=== PATIENT | male | born 1985 | race Caucasian/White ===

== ENCOUNTER 2019-04-11 11:26 | Inpatient (IN) | payer BC, OTHER ==
[2019-04-11] MEDS ORDERED: ACETAMINOPHEN 1000 MG/100 ML VIAL (NON FORMULARY) IVPB ONE (11:34)
[2019-04-11] MEDS ORDERED: SODIUM CHLORIDE 1,000 ML IV STA (11:34)
--- NOTE | 2019-04-11 11:35 | PDOC ---
History of Present Illness - General Chief Complaint: Pain Stated Complaint: abd pain Time Seen by Provider: 04/11/19 11:29 History Source: Patient Exam Limitations: No Limitations - History of Present Illness Initial Comments: 04/11/19 13:14 33 year old male with past medical history of diverticulitis presents with 1 week of LLQ pain. No fevers, chills, nausea, vomiting. Denies genitalia pain. No flank pain. States feels like his prior diverticulitis. Pain is constant without radiation. Past History - Past Medical History Allergies/Adverse Reactions: Allergies Allergy/AdvReac Type Severity Reaction Status Date / Time No Known Allergies Allergy Verified 04/11/19 11:27 Home Medications: Ambulatory Orders No Home Medications 0 dose .ROUTE UTDICT 09/13/12 COPD: No Other medical history: diverticulitis - Suicide/Smoking/Psychosocial Hx Smoking Status: No Smoking History: Never smoked Have you smoked in the past 12 months: No Number of Cigarettes Smoked Daily: 2 Information on smoking cessation initiated: No Hx Alcohol Use: No Drug/Substance Use Hx: No Review of Systems - Review of Systems Able to Perform ROS?: Yes Comments:: 04/11/19 13:29 GENERAL/CONSTITUTIONAL: [No fever or chills. No weakness. No weight change.] HEAD, EYES, EARS, NOSE AND THROAT: [No change in vision. No ear pain or discharge. No sore throat.] CARDIOVASCULAR: [No chest pain or shortness of breath.] RESPIRATORY: [No cough, wheezing, or hemoptysis.] GASTROINTESTINAL: [No nausea, vomiting, diarrhea or constipation. No rectal bleeding.] +abdominal pain GENITOURINARY: [No dysuria, frequency, or change in urination.] MUSCULOSKELETAL: [No joint or muscle swelling or pain. No neck or back pain.] SKIN AND BREASTS: [No rash or easy bruising.] NEUROLOGIC: [No headache, vertigo, loss of consciousness, or loss of sensation.] PSYCHIATRIC: [No depression or anxiety.] ENDOCRINE: [No increased thirst. No abnormal weight change.] HEMATOLOGIC/LYMPHATIC: [No anemia, easy bleeding, or history of blood clots.] ALLERGIC/IMMUNOLOGIC: [No hives or skin allergy. No latex allergy.] *Physical Exam - Vital Signs Last Vital Signs Temp Pulse Resp BP Pulse Ox 98.5 F 89 20 140/78 99 07/21/19 11:27 04/11/19 11:27 04/11/19 11:27 04/11/19 11:27 04/11/19 11:27 - Physical Exam Comments: 04/11/19 13:29 GENERAL: Awake, alert, and fully oriented, in no acute distress HEAD: No signs of trauma EYES: EOMI, sclera anicteric, conjunctiva clear ENT: Auricles normal inspection, hearing grossly normal, nares patent NECK: Normal ROM, supple ABDOMEN: Soft, TTP LLQ. No guarding, no rebound. No masses : Circumsized penis with no drainage or lesion. No rash. No testicular tenderness. EXTREMITIES: Normal range of motion, no edema. No clubbing or cyanosis. No cords, erythema, or tenderness NEUROLOGICAL: Cranial nerves II through XII grossly intact. Normal speech, normal gait SKIN: Warm, Dry, normal turgor, no rashes or lesions noted. ED Treatment Course - LABORATORY CBC & Chemistry Diagram: 04/11/19 12:00 04/11/19 12:00 - RADIOLOGY Radiology Studies Ordered: Category Date Time Status ABDOMEN & PELVIS CT WITH CONTR [CT] Stat CT Scan 04/11/19 11:34 Ordered Medical Decision Making - Medical Decision Making 04/11/19 13:32 Vital Signs Temp Pulse Resp BP Pulse Ox 98.5 F 89 20 140/78 99 04/11/19 11:27 04/11/19 11:27 04/11/19 11:27 04/11/19 11:27 04/11/19 11:27 LLQ pain. R/o diverticulitis. Labs, CT scan of abdomen and pelvis, UA, reassess. 04/11/19 14:34 CBC, BMP 04/11/19 12:00 04/11/19 12:00 CMP Sodium 136 mmol/L (136-145) 04/11/19 12:00 Potassium 3.8 mmol/L (3.5-5.1) 04/11/19 12:00 Chloride 101 mmol/L (98-107) 04/11/19 12:00 Carbon Dioxide 25 mmol/L (21-32) 04/11/19 12:00 Anion Gap 10 MMOL/L (8-16) 04/11/19 12:00 BUN 9.0 mg/dl (7-18) 04/11/19 12:00 Creatinine 0.8 mg/dl (0.55-1.3) 04/11/19 12:00 Est GFR (CKD-EPI)AfAm 137.96 04/11/19 12:00 Est GFR (CKD-EPI)NonAf 119.03 04/11/19 12:00 Random Glucose 187 mg/dl (74-106) H 04/11/19 12:00 Calcium 9.2 mg/dl (8.5-10) 04/11/19 12:00 Total Bilirubin 0.6 mg/dl (0.2-1) 04/11/19 12:00 AST 14 U/L (15-37) L 04/11/19 12:00 ALT 21 U/L (13-61) 04/11/19 12:00 Alkaline Phosphatase 50 U/L (45-117) 04/11/19 12:00 Total Protein 7.2 g/dl (6.4-8.2) 04/11/19 12:00 Albumin 3.9 g/dl (3.4-5.0) 04/11/19 12:[address] shows acute diverticulitis with microperforation and abscess. Case discussed with Dr. Driver. She will consult on case. Pt will likely need IR drainage. Given the microperforation and likely IR drainage, will transfer pt to [facility] Case discussed with charlotte hungerford hospitalist. Pt admitted to Med/Surg Admission. Case discussed in detail with admitting physician including history, physical exam and ancillary studies. Admitting physician has assumed care for the patient, will follow all pending diagnostics and will complete the evaluation and treatment. *DC/Admit/Observation/Transfer Diagnosis at time of Disposition: Diverticulitis - Discharge Dispostion Condition at time of disposition: Stable Decision to Admit order: Yes - Referrals - Patient Instructions - Post Discharge Activity
[2019-04-11] MEDS ORDERED: ACETAMINOPHEN INJECTION 100 ML IVPB ONE (11:41)
[2019-04-11 12:21] LABS: BASO % 2.7 % (0-2.0); EOS % 0.7 % (0-4.5); HEMATOCRIT 41.1 % (35.4-49); HEMOGLOBIN 13.6 GM/dl (11.7-16.9); LYMPH % 9.1 % (8-40); MCH 28.4 pg (25.7-33.7); MCHC 33.2 g/dl (32.0-35.9); MEAN CELL VOLUME 85.6 fl (80-96); MEAN PLT VOLUME 9.3 fl (7.5-11.1); MONO % 7.2 % (3.8-10.2); NEUT % 80.3 % (42.8-82.8); PLATELET COUNT 389 K/MM3 (134-434); RDW 11.9 % (11.9-15.9); WHITE BLOOD COUNT 18.1 K/mm3 (4.0-10.8)
[2019-04-11 12:27] LABS: ALBUMIN 3.9 g/dl (3.4-5.0); BILIRUBIN,TOTAL 0.6 mg/dl (0.2-1); CALCIUM 9.2 mg/dl (8.5-10); CREATININE 0.8 mg/dl (0.55-1.3); POTASSIUM 3.8 mmol/L (3.5-5.1); TOT PROT 7.2 g/dl (6.4-8.2)
[2019-04-11] MEDS ORDERED: morphine CARPU-JECT 2 MG/1 ML DISP.SYRIN IVPUSH ONE (13:10)
[2019-04-11] MEDS ORDERED: morphine SULFATE 4 MG/ML VIAL ONE ×2 (13:12→13:59)
[2019-04-11] MEDS ORDERED: PIPERACILLIN/TAZOB 3.375 GM 3.375 GM in DEXTROSE 5%-WATER - 50 ML IVPB ONE (13:40)
[2019-04-11] MEDS ORDERED: morphine CARPU-JECT 4 MG/1 ML DISP.SYRIN IVPUSH ONE ×2 (13:45→14:31)
[2019-04-11] MEDS ORDERED: PIPERACILLIN/TAZOBACTAM 3.375 GM VIAL IVPB ONE (13:59)
[2019-04-11] MEDS ORDERED: ONDANSETRON 4 MG/2 ML VIAL IVPUSH PRN (14:17)
--- NOTE | 2019-04-11 14:23 | HP ---
Admitting History and Physical - Admission Chief Complaint: Left LQ pain History of Present Illness: 33 yrs old man H/O Diverticulitis present with Left LQ pain, poor PO intake for pat 1 wk as per patient symptoms started Friday night with left Lq pain that was intermittent, localised and associated with some nausea but no or chills, poor appetite and skip few work days, symptoms persisted more then usual and pain was very sever last night and today also c/o low grade fever , in the ED patient was afebrile with elevated TWBC , CT abd shows Acute Sigmoid Diverticulitis with perforation is being admitted for acute Diverticulitis with abscess at the time of examination comfortable, surgery is consulted recommended abx, no surgical nonintervention, possible CT guided aspiration. History Source: Patient - Past Medical History Gastrointestinal: Yes: Diverticulitis - Smoking History Smoking history: Never smoked Have you smoked in the past 12 months: No Aproximately how many cigarettes per day: 2 - Alcohol/Substance Use Hx Alcohol Use: No History of Substance Use: denies: Cocaine, Heroin - Social History Usual Living Arrangement: Yes: With Spouse Home Medications - Allergies Allergies/Adverse Reactions: Allergies Allergy/AdvReac Type Severity Reaction Status Date / Time No Known Allergies Allergy Verified 04/11/19 11:27 - Home Medications Home Medications: Ambulatory Orders No Home Medications 0 dose .ROUTE UTDICT 09/13/12 Family Disease History - Family Disease History Family History: Unremarkable Family Disease History: Diabetes: Father Review of Systems - Review of Systems Constitutional: denies: Chills, Diaphoresis Eyes: denies: Blind Spots, Blurred Vision HENT: denies: Difficult Swallowing, Hearing Loss, Mouth Swelling Neck: denies: Decreased ROM, Lumps, Pain on Movement Cardiovascular: denies: Chest Pain, Edema, Palpitations, Shortness of Breath Respiratory: denies: Cough, Exercise Intolerance, Hemoptysis, Orthopnea Gastrointestinal: reports: Abdominal Pain, Constipation, Indigestion. denies: Bloating, Melena, Nausea Genitourinary: denies: Burning, Discharge, Dysuria, Flank Pain, Frequency Musculoskeletal: denies: Back Pain, Crepitus, Decreased ROM, Extremity Pain Integumentary: denies: Blister, Bruising, Change in Color Neurological: denies: Change in LOC, Change in Speech, Confusion Endocrine: denies: Excessive Sweating, Flushing, Increased Hunger Hematology/Lymphatic: denies: Easily Bruised, Excessive Bleeding, Swollen Glands Psychiatric: denies: Altered Sleep Pattern, Anxiety, Depression Physical Examination Vital Signs: Vital Signs Temperature 98.5 F 04/11/19 11:27 Pulse Rate 89 04/11/19 11:27 Respiratory Rate 20 04/11/19 11:27 Blood Pressure 140/78 04/11/19 11:27 O2 Sat by Pulse Oximetry (%) 99 04/11/19 11:27 Constitutional: Yes: Well Nourished, No Distress HENT: Yes: Atraumatic, Normocephalic Neck: Yes: Supple, Trachea Midline Cardiovascular: Yes: Regular Rate and Rhythm, S1, S2. No: JVD Respiratory: Yes: Regular Gastrointestinal: Yes: Normal Bowel Sounds, Tenderness, Rebound (Left LQ) Extremities: No: Calf Tenderness Edema: No Peripheral Pulses: Left Doralis Pedis: 1+, Right Dorsalis Pedis: 1+ Neurological: Yes: Alert, Oriented ...Motor Strength: WNL, LUE, LLE, RUE, RLE Labs: CBC, BMP CBC,CMP WBC 18.1 K/mm3 (4.0-10.8) H 04/11/19 12:00 RBC 4.80 M/mm3 (4.00-5.60) 04/11/19 12:00 Hgb 13.6 GM/dl (11.7-16.9) 04/11/19 12:00 Hct 41.1 % (35.4-49) 04/11/19 12:00 MCV 85.6 fl (80-96) 04/11/19 12:00 MCH 28.4 pg (25.7-33.7) 04/11/19 12:00 MCHC 33.2 g/dl (32.0-35.9) 04/11/19 12:00 RDW 11.9 % (11.9-15.9) 04/11/19 12:00 Plt Count 389 K/MM3 (134-434) 04/11/19 12:00 MPV 9.3 fl (7.5-11.1) 04/11/19 12:00 Absolute Neuts (auto) 14.6 K/mm3 04/11/19 12:00 Neutrophils % 80.3 % (42.8-82.8) 04/11/19 12:00 Lymphocytes % 9.1 % (8-40) 04/11/19 12:00 Monocytes % 7.2 % (3.8-10.2) 04/11/19 12:00 Eosinophils % 0.7 % (0-4.5) 04/11/19 12:00 Basophils % 2.7 % (0-2.0) H 04/11/19 12:00 Sodium 136 mmol/L (136-145) 04/11/19 12:00 Potassium 3.8 mmol/L (3.5-5.1) 04/11/19 12:00 Chloride 101 mmol/L (98-107) 04/11/19 12:00 Carbon Dioxide 25 mmol/L (21-32) 04/11/19 12:00 Anion Gap 10 MMOL/L (8-16) 04/11/19 12:00 BUN 9.0 mg/dl (7-18) 04/11/19 12:00 Creatinine 0.8 mg/dl (0.55-1.3) 04/11/19 12:00 Est GFR (CKD-EPI)AfAm 137.96 04/11/19 12:00 Est GFR (CKD-EPI)NonAf 119.03 04/11/19 12:00 Random Glucose 187 mg/dl (74-106) H 04/11/19 12:00 Calcium 9.2 mg/dl (8.5-10) 04/11/19 12:00 Total Bilirubin 0.6 mg/dl (0.2-1) 04/11/19 12:00 AST 14 U/L (15-37) L 04/11/19 12:00 ALT 21 U/L (13-61) 04/11/19 12:00 Alkaline Phosphatase 50 U/L (45-117) 04/11/19 12:00 Total Protein 7.2 g/dl (6.4-8.2) 04/11/19 12:00 Albumin 3.9 g/dl (3.4-5.0) 04/11/19 12:00 Imaging - Results Cat Scan: Report Reviewed ( acute Diverticullitis in sigmoid colon with 4.7x4 cm absces) Problem List - Problems (1) Diverticulitis of large intestine with abscess Assessment/Plan: Elevated TWBC with CT finding of acute sigmoid diverticulitis with abscess, NPO , Pain control, IV Hydration, surgery is contacted from ED recommended possible IR Guided aspiration[facility] IV Zosyn frequent abd exam, ID consult and evaluation by Code(s): K57.20 - DVTRCLI OF LG INT W PERFORATION AND ABSCESS W/O BLEEDING (2) Obesity (BMI 30-39.9) Assessment/Plan: Nutrition consult as out patient Code(s): E66.9 - OBESITY, UNSPECIFIED (3) Hyperglycemia Assessment/Plan: Accucheck q 6 with correction dose insulin, F/U HBa!C Code(s): R73.9 - HYPERGLYCEMIA, UNSPECIFIED
[2019-04-11] MEDS ORDERED: SODIUM CHLORIDE 1,000 ML IV SCH (14:30)
[2019-04-11] MEDS ORDERED: HYDROmorphone HCL CARPU-JECT 1 MG/1 ML DISP.SYRIN IVPB ONE (14:41)
[2019-04-11] MEDS: HYDROmorphone HCL CARPU-JECT 1 MG/1 ML DISP.SYRIN IVPB PRN ×2 (14:51→20:51)
[2019-04-11 15:03] LABS: INR 1.3 (0.82-1.09); PROTHROMBIN TIME (PATIENT) 15.4 SEC (10.2-13.0)
[2019-04-11 17:59] VITALS: BMI 34.9
[2019-04-11] MEDS: INSULIN SLIDING SCALE (NOVOLOG) 1 VIAL SQ SCH (18:12)
--- NOTE | 2019-04-11 18:56 | CON.ID ---
Consult - History of Present Illness History of Present Illness: 33 y.o. male with PMH of Diverticulitis diagnosed in 2017 presents with c/o severe LLQ abdominal pain, subjective fever/chills. He states pain initially began 1 wk ago. He took the following day off from work but pain persisted the rest of the week. He denies n/v/d, dysuria, SOB, cough, or chills. He states he has had about 8 episodes of similar abd pain over the past 2 yrs which he managed himself with tylenol and the pain would subside. In the ER he was noted to have temp of 99.2F with wbc of 18K. CT Abd/Pelvis severe sigmoid inflammation consistent with diverticulitis, microperforation and 4.7x 4 cm abscess. He is currently alert, pain controlled, without distress. - History Source History Provided By: Patient - Past Medical History Gastrointestinal: Yes: Diverticulitis - Alcohol/Substance Use Hx Alcohol Use: Yes (social) History of Substance Use: denies: Cocaine, Heroin - Smoking History Smoking history: Current some day smoker Have you smoked in the past 12 months: Yes Aproximately how many cigarettes per day: 1 Home Medications - Allergies Allergies/Adverse Reactions: Allergies Allergy/AdvReac Type Severity Reaction Status Date / Time No Known Allergies Allergy Verified 04/11/19 11:27 - Home Medications Home Medications: Ambulatory Orders No Home Medications 0 dose .ROUTE UTDICT 09/13/12 Family Disease History - Family Disease History Family Disease History: Diabetes: Father Review of Systems - Review of Systems Constitutional: reports: Fever Eyes: reports: No Symptoms HENT: reports: No Symptoms Neck: reports: No Symptoms Cardiovascular: reports: No Symptoms Respiratory: reports: No Symptoms Gastrointestinal: reports: Abdominal Pain Genitourinary: reports: No Symptoms Musculoskeletal: reports: No Symptoms Integumentary: reports: No Symptoms Neurological: reports: No Symptoms Endocrine: reports: No Symptoms Hematology/Lymphatic: reports: No Symptoms Psychiatric: reports: No Symptoms Physical Exam Vital Signs: Vital Signs Temperature 98.3 F 04/11/19 17:47 Pulse Rate 84 04/11/19 17:47 Respiratory Rate 16 04/11/19 17:47 Blood Pressure 138/88 04/11/19 17:47 O2 Sat by Pulse Oximetry (%) 98 04/11/19 17:47 Constitutional: Yes: No Distress, Calm Eyes: Yes: Conjunctiva Clear, EOM Intact HENT: Yes: Atraumatic Neck: Yes: Supple Cardiovascular: Yes: Regular Rate and Rhythm Respiratory: Yes: CTA Bilaterally Gastrointestinal: Yes: Normal Bowel Sounds, Soft, Tenderness (minimal LLQ with deep palpation) Renal/: Yes: WNL Musculoskeletal: Yes: WNL Extremities: Yes: WNL Edema: No Labs: CBC, BMP 04/11/19 12:00 04/11/19 12:00 Imaging - Results Cat Scan: Report Reviewed Problem List - Problems (1) Diverticulitis of large intestine with abscess Code(s): K57.20 - DVTRCLI OF LG INT W PERFORATION AND ABSCESS W/O BLEEDING (2) Hyperglycemia Code(s): R73.9 - HYPERGLYCEMIA, UNSPECIFIED (3) Obesity (BMI 30-39.9) Code(s): E66.9 - OBESITY, UNSPECIFIED Assessment/Plan 33 y.o. male with PMH of diverticulitis presenting with c/o severe LLQ abd pain x 1 wk, low grade fever/chills noted to have leukocytosis with CT Abd revealing sigmoid inflammation/microperforation/intraabdominal collection Sigmoid diverticulitis with perforation and abscess -- continue Zosyn IV empirically -- blood cultures -- monitor wbc trend, vitals -- IR evaluation for drainage -- Surgery following pt currently appears stable, without distress Will follow Thank you
[2019-04-11] MEDS ORDERED: DEXTROSE 5%-WATER 100 ML IVPB ONE (19:15)
[2019-04-11] MEDS ORDERED: PIPERACILLIN/TAZOBACTAM 4.5 GM VIAL IVPB ONE (19:15)
[2019-04-11] MEDS: PIPERACILLIN/TAZOB 4.5 GM 4.5 GM in DEXTROSE 5%-WATER 100 ML IVPB SCH (21:17)
[2019-04-11] MEDS: D5-1/2NS+20 MEQ KCL - 20 MEQ/1,000 ML INFUS.BAG IV SCH (22:31)
[2019-04-11] MEDS: ACETAMINOPHEN 1000 MG/100 ML VIAL (NON FORMULARY) IVPB PRN (22:37)
--- NOTE | 2019-04-11 23:15 | CONSULT ---
Consult Consult Specialty:: General Surgery Referred by:: Damari Hall Reason for Consultation:: sigmoid diverticulitis with microperf/abscess - History of Present Illness Chief Complaint: suprapubic/lower abdominal pain, anorexia History of Present Illness: 33yo obese M presented to ER at [facility] with suprapubic/lower abdominal pain, "squeezing/gripping on both sides," and loss of appetite for a week. He has no sig PMH/PSH except intermittent heartburn and a previous episode of diverticulitis, diagnosed in 2016, when he had similar pain in lower abdomen radiating downward to an episode from 2008 (diagnosed initially as epidydimitis at [facility]), with recurrent "flares" since then managed at home with pain medication and no medical attention until it got really bad in 2016. At that time, he sought care from a GI specialist, who did flexible sigmoidoscopy (no CT /imaging), and found diverticuli, told him he thought it was diverticulitis, and gave him antibiotics and loperamide, and he did get better. Last Friday, the pain started, and he called out of work Friday, but tried to go back and Fri. , the pain got much worse, and he stayed off work, taking Tylenol but not really getting much relief. He has been constipated this week as well, and had no appetite for most of it. Denies F/C, N/V, dysuria. The pain does radiated downward, like pressure, into his pelvis and towards his testes, similar to previous experiences, but is not really worse to one side or the other. He came to the ER at [facility] today finally because the pain was so bad. He does not have a PMD, but takes no meds regularly at home. In the ER, he was afebrile (temps to 99.3 today only), with wbc [address] showing sigmoid diverticulitis with an abscess that may be partly intramural, microperforation with local air locules only, and fluids and antibiotics were started. Surgery was asked to assess. He is planned for transfer to [facility] for possible IR drainage, and because there is a possibility that he could still need urgent surgical intervention, if he does not improve with conservative treatment. He is seen and examined in bed, resting comfortably and awake. He reports his pain is improved with medication; he feels better than earlier, and is voiding ok but no BM yet. CT was done with IV but no oral contrast. He describes the pain as low and central, with a gripping sensation to both sides of the middle, like squeezing, with some radiation and pressure downward at times. He thinks he has had multiple "flares" of this problem at home over the years, but until 2017, did not put a name to it, and figured they all must be the same thing. He had not sought medical attention for them in the past, in part due to lack of insurance. - History Source History Provided By: Patient Limitations to Obtaining History: No Limitations - Past Medical History Gastrointestinal: Yes: Diverticulitis (was treated for in 2017, had sigmoidoscopy at the time; ?may have had in 2008 w/similar pain, but diagnosis then was epidydimitis), Diverticulosis, GERD, Other (obesity) - Past Surgical History Past Surgical History: Yes: None Additional Surgical History: flexible sigmoidoscopy 2016 - Alcohol/Substance Use Hx Alcohol Use: Yes (social/weekends, some binging (6-8 beers)) History of Substance Use: reports: Marijuana (occasionally (couple times a month )) - Smoking History Smoking history: Current some day smoker Have you smoked in the past 12 months: Yes Aproximately how many cigarettes per day: 1 (smokes on wkends/when he drinks) - Social History Usual Living Arrangement: With Significant Other (fiancee) ADL: Independent 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 denies: Chills, Fever, Unintentional Wgt. Loss Eyes: denies: Blurred Vision, Recent Change in Vision HENT: denies: Difficult Swallowing, Throat Pain Neck: denies: Swollen Glands, Tenderness Cardiovascular: denies: Chest Pain, Palpitations Respiratory: reports: Snoring. denies: Cough, SOB Gastrointestinal: reports: Abdominal Pain (with hpi), Constipation (this last week), Indigestion (sometimes). denies: Diarrhea, Nausea, Vomiting Genitourinary: denies: Burning, Dysuria Musculoskeletal: denies: Back Pain, Joint Pain, Muscle Pain Integumentary: denies: Change in Color, Rash Neurological: denies: Dizziness, Headache, Unsteady Gait Psychiatric: denies: Anxiety, Depression Physical Exam Vital Signs: Vital Signs Temperature 99.3 F 04/11/19 22:29 Pulse Rate 85 04/11/19 22:29 Respiratory Rate 18 04/11/19 22:29 Blood Pressure 120/69 04/11/19 22:29 O2 Sat by Pulse Oximetry (%) 94 L 04/11/19 22:29 Constitutional: Yes: No Distress, Calm, Obese Eyes: Yes: Conjunctiva Clear, EOM Intact HENT: Yes: Atraumatic, Normocephalic Neck: Yes: Supple, Trachea Midline Cardiovascular: Yes: Regular Rate and Rhythm Respiratory: Yes: Regular, CTA Bilaterally Gastrointestinal: Yes: Normal Bowel Sounds, Soft, Abdomen, Obese, Tenderness ( LLQ > suprapubic > LUQ referred to LLQ and lower abdomen). No: Tenderness, Rebound (no rebound or guarding) ...Rectal Exam: Yes: Deferred Renal/: No: CVA Tenderness - Left, CVA Tenderness - Right Musculoskeletal: No: Joint Stiffness, Joint Swelling Extremities: No: Cool, Cyanosis Edema: No Peripheral Pulses WNL: Yes Integumentary: No: Jaundice, Rash Neurological: Yes: Alert, Oriented Psychiatric: Yes: Alert, Oriented Labs: CBC, BMP 04/11/19 12:00 04/11/19 12:00 CMP Sodium 136 mmol/L (136-145) 04/11/19 12:00 Potassium 3.8 mmol/L (3.5-5.1) 04/11/19 12:00 Chloride 101 mmol/L (98-107) 04/11/19 12:00 Carbon Dioxide 25 mmol/L (21-32) 04/11/19 12:00 Anion Gap 10 MMOL/L (8-16) 04/11/19 12:00 BUN 9.0 mg/dl (7-18) 04/11/19 12:00 Creatinine 0.8 mg/dl (0.55-1.3) 04/11/19 12:00 Est GFR (CKD-EPI)AfAm 137.96 04/11/19 12:00 Est GFR (CKD-EPI)NonAf 119.03 04/11/19 12:00 POC Glucometer 94 UNITS (80-120) 04/11/19 17:07 Random Glucose 187 mg/dl (74-106) H 04/11/19 12:00 Lactic Acid 1.0 mmol/L (0.4-2.0) 04/11/19 14:25 Calcium 9.2 mg/dl (8.5-10) 04/11/19 12:00 Total Bilirubin 0.6 mg/dl (0.2-1) 04/11/19 12:00 AST 14 U/L (15-37) L 04/11/19 12:00 ALT 21 U/L (13-61) 04/11/19 12:00 Alkaline Phosphatase 50 U/L (45-117) 04/11/19 12:00 Total Protein 7.2 g/dl (6.4-8.2) 04/11/19 12:00 Albumin 3.9 g/dl (3.4-5.0) 04/11/19 12:00 INR, PTT INR 1.30 (0.82-1.09) H 04/11/19 14:25 Urine Test Results Urine Color Yellow 04/11/19 17:30 Urine Appearance Clear 04/11/19 17:30 Urine pH 6.5 (4.5-8) 04/11/19 17:30 Urine Protein Negative (NEGATIVE) 04/11/19 17:30 Urine Glucose (UA) Negative (NEGATIVE) 04/11/19 17:30 Urine Ketones 1+ (NEGATIVE) H 04/11/19 17:30 Urine Blood Negative (NEGATIVE) 04/11/19 17:30 Urine Nitrite Negative (NEGATIVE) 04/11/19 17:30 Urine Bilirubin Negative (NEGATIVE) 04/11/19 17:30 Ur Leukocyte Esterase Negative (NEGATIVE) 04/11/19 17:30 Imaging - Results Cat Scan: Report Reviewed, Image Reviewed (images reviewed - sigmoid diverticulitis with microperforation/local few spots of air, abscess adjacent and possibly intramural, ~4cm; no distant free air) Problem List - Problems (1) Diverticulitis of large intestine with abscess Assessment/Plan: possible recurrent episode, but no imaging diagnosis of 2017 episode, nor reliable diagnosis from earlier, other than his pain pattern admitted to medicine continue NPO/IVF for now changed to maintenance fluids IV antibiotics per ID - Zosyn pain meds prn, nonnarcotics first line GI/DVT prophylaxis encouraged OOB/ambulation possible percutaneous drainage by IR tomorrow at [facility] with transfer to there to stay if abscess is not accessible to IR, will monitor clinical course over next 1-2 days - would keep at [facility] agree with possible IR drain and conservative management for now discussed with patient to let nurse/MD know if any acute change in his pain, abdominal distention, or symptoms if gross perforation or deterioration in clinical status requires emergent surgery, there is a good chance he would require colostomy he is aware and understands and agrees with plan will follow with you consider GI consultation will need GI followup for full colonoscopy 6-8 weeks after recovery from this episode also needs referral to or to establish care with a PMD after discharge - he knows this Thank you for the opportunity to participate in the care of this patient. Code(s): K57.20 - DVTRCLI OF LG INT W PERFORATION AND ABSCESS W/O BLEEDING Qualifiers: Diverticulitis bleeding: without bleeding Qualified Code(s): K57.20 - Diverticulitis of large intestine with perforation and abscess without bleeding (2) Suprapubic pain Code(s): R10.2 - PELVIC AND PERINEAL PAIN (3) Left lower quadrant abdominal tenderness without rebound tenderness Code(s): R10.814 - LEFT LOWER QUADRANT ABDOMINAL TENDERNESS (4) Class 2 obesity due to excess calories without serious comorbidity with body mass index (BMI) of 35.0 to 35.9 in adult Code(s): E66.09 - OTHER OBESITY DUE TO EXCESS CALORIES; Z68.35 - BODY MASS INDEX (BMI) 35.0-35.9, ADULT
[2019-04-12] MEDS ORDERED: PIPERACILLIN/TAZOBACTAM 4.5 GM VIAL IVPB ONE ×2 (02:20→08:33)
[2019-04-12] MEDS ORDERED: DEXTROSE 5%-WATER 100 ML IVPB ONE ×2 (02:20→08:33)
[2019-04-12] MEDS: PIPERACILLIN/TAZOB 4.5 GM 4.5 GM in DEXTROSE 5%-WATER 100 ML IVPB SCH ×3 (02:58→17:38)
[2019-04-12] MEDS: HYDROmorphone HCL CARPU-JECT 1 MG/1 ML DISP.SYRIN IVPB PRN (04:20)
[2019-04-12] MEDS: INSULIN SLIDING SCALE (NOVOLOG) 1 VIAL SQ SCH ×3 (07:03→18:26)
[2019-04-12 08:07] LABS: BASO % 0.3 % (0-2.0); EOS % 1.7 % (0-4.5); HEMATOCRIT 35.5 % (35.4-49); HEMOGLOBIN 11.9 GM/dl (11.7-16.9); MCH 28.4 pg (25.7-33.7); MCHC 33.6 g/dl (32.0-35.9); MEAN CELL VOLUME 84.6 fl (80-96); MEAN PLT VOLUME 9.4 fl (7.5-11.1); MONO % 6.7 % (3.8-10.2); NEUT % 79.3 % (42.8-82.8); PLATELET COUNT 330 K/MM3 (134-434); RDW 11.8 % (11.9-15.9); WHITE BLOOD COUNT 12.6 K/mm3 (4.0-10.8)
[2019-04-12 08:16] LABS: INR 1.43 (0.82-1.09); PROTHROMBIN TIME (PATIENT) 15.9 SEC (10.2-13.0)
[2019-04-12 08:57] LABS: ALBUMIN 3.1 g/dl (3.4-5.0); BILIRUBIN,TOTAL 0.5 mg/dl (0.2-1); CALCIUM 8.7 mg/dl (8.5-10); CREATININE 0.7 mg/dl (0.55-1.3); MAGNESIUM 2.1 mg/dL (1.8-2.4); POTASSIUM 4.6 mmol/L (3.5-5.1); TOT PROT 6.4 g/dl (6.4-8.2)
[2019-04-12] MEDS: PANTOPRAZOLE SODIUM 40 MG VIAL IVPUSH SCH (09:02)
[2019-04-12] MEDS: ACETAMINOPHEN 1000 MG/100 ML VIAL (NON FORMULARY) IVPB PRN (09:14)
--- NOTE | 2019-04-12 09:51 | PN ---
Physical Exam: SUBJECTIVE: Patient seen and examined at bedside. States feeling much better. Had a large, soft BM today, +flatus OBJECTIVE: Vital Signs Period Temp Pulse Resp BP Sys/Barlow Pulse Ox Last 24 Hr 98.3 F-99.3 F 74-89 16-20 115-140/61-89 94-99 GENERAL: The patient is awake, alert, and fully oriented, in no acute distress. LUNGS: Breath sounds equal, clear to auscultation bilaterally, no wheezes, no crackles, no accessory muscle use. HEART: Regular rate and rhythm, S1, S2 ABDOMEN: Soft, LLQ and suprapubic tenderness, hypoactive bowel sounds EXTREMITIES: 2+ pulses, warm, well-perfused, no edema. NEUROLOGICAL: Cranial nerves II through XII grossly intact. Normal speech. Laboratory Results - last 24 hr 04/11/19 04/11/19 04/11/19 12:00 12:00 14:25 WBC 18.1 H RBC 4.80 Hgb 13.6 Hct 41.1 MCV 85.6 MCH 28.4 MCHC 33.2 RDW 11.9 Plt Count 389 MPV 9.3 Absolute Neuts (auto) 14.6 Neutrophils % 80.3 Lymphocytes % 9.1 Monocytes % 7.2 Eosinophils % 0.7 Basophils % 2.7 H PT with INR INR PTT (Actin FS) Sodium 136 Potassium 3.8 Chloride 101 Carbon Dioxide 25 Anion Gap 10 BUN 9.0 Creatinine 0.8 Est GFR (CKD-EPI)AfAm 137.96 Est GFR (CKD-EPI)NonAf 119.03 POC Glucometer Random Glucose 187 H Lactic Acid 1.0 Calcium 9.2 Phosphorus Magnesium Total Bilirubin 0.6 AST 14 L ALT 21 Alkaline Phosphatase 50 Total Protein 7.2 Albumin 3.9 Urine Color Urine Appearance Urine pH Urine Protein Urine Glucose (UA) Urine Ketones Urine Blood Urine Nitrite Urine Bilirubin Urine Urobilinogen Ur Leukocyte Esterase Blood Type Antibody Screen 04/11/19 04/11/19 04/11/19 14:25 14:25 14:30 WBC RBC Hgb Hct MCV MCH MCHC RDW Plt Count MPV Absolute Neuts (auto) Neutrophils % Lymphocytes % Monocytes % Eosinophils % Basophils % PT with INR 15.4 H INR 1.30 H PTT (Actin FS) 29.8 Sodium Potassium Chloride Carbon Dioxide Anion Gap BUN Creatinine Est GFR (CKD-EPI)AfAm Est GFR (CKD-EPI)NonAf POC Glucometer Random Glucose Lactic Acid Calcium Phosphorus Magnesium Total Bilirubin AST ALT Alkaline Phosphatase Total Protein Albumin Urine Color Urine Appearance Urine pH Urine Protein Urine Glucose (UA) Urine Ketones Urine Blood Urine Nitrite Urine Bilirubin Urine Urobilinogen Ur Leukocyte Esterase Blood Type O POSITIVE Antibody Screen Negative 04/11/19 04/11/19 04/11/19 17:07 17:30 17:30 WBC RBC Hgb Hct MCV MCH MCHC RDW Plt Count MPV Absolute Neuts (auto) Neutrophils % Lymphocytes % Monocytes % Eosinophils % Basophils % PT with INR INR PTT (Actin FS) Sodium Potassium Chloride Carbon Dioxide Anion Gap BUN Creatinine Est GFR (CKD-EPI)AfAm Est GFR (CKD-EPI)NonAf POC Glucometer 94 Random Glucose Lactic Acid Calcium Phosphorus Magnesium Total Bilirubin AST ALT Alkaline Phosphatase Total Protein Albumin Urine Color Urine Appearance Urine pH Urine Protein Urine Glucose (UA) Urine Ketones Urine Blood Urine Nitrite Urine Bilirubin Urine Urobilinogen Ur Leukocyte Esterase Blood Type O POSITIVE Cancelled Antibody Screen Cancelled 04/11/19 04/12/19 04/12/19 17:30 06:24 06:39 WBC 12.6 H RBC 4.20 Hgb 11.9 Hct 35.5 MCV 84.6 MCH 28.4 MCHC 33.6 RDW 11.8 L Plt Count 330 MPV 9.4 Absolute Neuts (auto) 10.1 Neutrophils % 79.3 Lymphocytes % 12.0 D Monocytes % 6.7 Eosinophils % 1.7 D Basophils % 0.3 PT with INR INR PTT (Actin FS) Sodium Potassium Chloride Carbon Dioxide Anion Gap BUN Creatinine Est GFR (CKD-EPI)AfAm Est GFR (CKD-EPI)NonAf POC Glucometer 157 Random Glucose Lactic Acid Calcium Phosphorus Magnesium Total Bilirubin AST ALT Alkaline Phosphatase Total Protein Albumin Urine Color Yellow Urine Appearance Clear Urine pH 6.5 Urine Protein Negative Urine Glucose (UA) Negative Urine Ketones 1+ H Urine Blood Negative Urine Nitrite Negative Urine Bilirubin Negative Urine Urobilinogen 0.2 Ur Leukocyte Esterase Negative Blood Type Antibody Screen 04/12/19 04/12/19 06:39 06:39 WBC RBC Hgb Hct MCV MCH MCHC RDW Plt Count MPV Absolute Neuts (auto) Neutrophils % Lymphocytes % Monocytes % Eosinophils % Basophils % PT with INR 15.9 H INR 1.43 H PTT (Actin FS) Sodium 136 Potassium 4.6 Chloride 103 Carbon Dioxide 26 Anion Gap 7 L BUN 8.0 Creatinine 0.7 Est GFR (CKD-EPI)AfAm 145.74 Est GFR (CKD-EPI)NonAf 125.75 POC Glucometer Random Glucose 156 H Lactic Acid Calcium 8.7 Phosphorus 3.0 Magnesium 2.1 Total Bilirubin 0.5 AST 10 L ALT 16 Alkaline Phosphatase 38 L D Total Protein 6.4 Albumin 3.1 L Urine Color Urine Appearance Urine pH Urine Protein Urine Glucose (UA) Urine Ketones Urine Blood Urine Nitrite Urine Bilirubin Urine Urobilinogen Ur Leukocyte Esterase Blood Type Antibody Screen Active Medications Generic Name Dose Route Start Last Admin Trade Name Freq PRN Reason Stop Dose Admin Acetaminophen 1,000 mg 04/11/19 21:02 04/12/19 09:14 Ofirmev Injection - IVPB 1,000 mg Q6H PRN Administration PAIN LEVEL 1-5 Hydromorphone HCl 1 mg 04/11/19 14:17 04/12/19 04:20 Dilaudid Injection - IVPB 1 mg Q6H PRN Administration PAIN LEVEL 6-10 Piperacillin Sod/Tazobactam 100 mls @ 200 mls/hr 04/11/19 21:00 04/12/19 09: 02 Sod 4.5 gm/ Dextrose IVPB 200 mls/hr Q6H-IV HERMAN Administration Protocol Potassium Chloride/Dextrose/Sod Cl 20 meq in 1,000 mls @ 125 mls/hr 04/11/19 22:00 04/11/19 22:31 D5-1/2ns+20 Meq Kcl - IV 125 mls/hr ASDIR HERMAN Administration Insulin Aspart 1 vial 04/11/19 16:30 04/12/19 07:03 Novolog Vial Sliding Scale - SQ Not Given TIDAC HERMAN Protocol Ondansetron HCl 4 mg 04/11/19 14:17 Zofran Injection IVPUSH Q6H PRN NAUSEA Pantoprazole Sodium 40 mg 04/12/19 10:00 04/12/19 09:02 Protonix Iv IVPUSH 40 mg DAILY HERMAN Administration Imaging 04/11 CTAP: acute sigmoid diverticulitis, microperforation, abscess/phlegmon 4.7 x 4.0cm ASSESSMENT/PLAN 33 year-old male with a PMH significant for diverticultits. One previous hospitalization for diverticulitis in 2017. Acute sigmoid diverticulitis with phlegmon/abscess --WBC trending down, afebrile --continue Zosyn (day #2), cultures pending --requested IR consult to see if abscess is drainable --surgery following --ID following Hyperglycemia --A1C pending FEN Fluids: D51/2NS+20K @ 125mL/hr Electrolytes: replete as indicated Nutrition: NPO DVT prophylaxis: SCDs, oob, ambulation; hold chemical prophylaxis for possible IR/surgical intervention Dispo: continues to require inpatient care. Full code. Visit type - Emergency Visit Emergency Visit: Yes ED Registration Date: 04/11/19 Care time: The patient presented to the Emergency Department on the above date and was hospitalized for further evaluation of their emergent condition. - New Patient This patient is new to me today: Yes Date on this admission: 04/12/19 - Critical Care Critical Care patient: No
[2019-04-12] MEDS ORDERED: ACETAMINOPHEN 1000 MG/100 ML VIAL (NON FORMULARY) IVPB SCH (13:15)
--- NOTE | 2019-04-12 13:24 | PN ---
Progress Note, Physician History of Present Illness: stable starting to feel better still with some abd tenderness wbc trending down - Current Medication List Current Medications: Active Medications Acetaminophen (Ofirmev Injection -) 1,000 mg IVPB Q6H PRN PRN Reason: PAIN LEVEL 1-5 Last Admin: 04/12/19 09:14 Dose: 1,000 mg Piperacillin Sod/Tazobactam (Sod 4.5 gm/ Dextrose) 100 mls @ 200 mls/hr IVPB Q6H-IV HERMAN; Protocol Last Admin: 04/12/19 09:02 Dose: 200 mls/hr Potassium Chloride/Dextrose/Sod Cl (D5-1/2ns+20 Meq Kcl -) 20 meq in 1,000 mls @ 125 mls/hr IV ASDIR HERMAN Last Admin: 04/11/19 22:31 Dose: 125 mls/hr Insulin Aspart (Novolog Vial Sliding Scale -) 1 vial SQ TIDAC [facility]; Protocol Last Admin: 04/12/19 07:03 Dose: Not Given Ketorolac Tromethamine (Toradol Injection -) 30 mg IVPUSH ONCE ONE Stop: 04/12/19 13:31 Ondansetron HCl (Zofran Injection) 4 mg IVPUSH Q6H PRN PRN Reason: NAUSEA Pantoprazole Sodium (Protonix Iv) 40 mg IVPUSH DAILY [facility] Last Admin: 04/12/19 09:02 Dose: 40 mg - Objective Vital Signs: Vital Signs Temperature 98.6 F 04/12/19 06:40 Pulse Rate 74 04/12/19 06:40 Respiratory Rate 18 04/12/19 06:40 Blood Pressure 115/61 04/12/19 06:40 O2 Sat by Pulse Oximetry (%) 97 04/12/19 07:58 Constitutional: Yes: No Distress, Calm Cardiovascular: Yes: S1, S2 Respiratory: Yes: Regular, CTA Bilaterally Gastrointestinal: Yes: Hypoactive Bowel Sounds, Tenderness Musculoskeletal: Yes: WNL Extremities: Yes: WNL Neurological: Yes: Alert, Oriented Psychiatric: Yes: Alert, Oriented Labs: CBC, BMP 04/12/19 06:39 04/12/19 06:39 INR, PTT INR 1.43 (0.82-1.09) H 04/12/19 06:39 Assessment/Plan Problem List - Problems (1) Diverticulitis of large intestine with abscess Code(s): K57.20 - DVTRCLI OF LG INT W PERFORATION AND ABSCESS W/O BLEEDING (2) Hyperglycemia Code(s): R73.9 - HYPERGLYCEMIA, UNSPECIFIED (3) Obesity (BMI 30-39.9) Code(s): E66.9 - OBESITY, UNSPECIFIED Assessment/Plan 33 y.o. male with PMH of diverticulitis presenting with c/o severe LLQ abd pain x 1 wk, low grade fever/chills noted to have leukocytosis with CT Abd revealing sigmoid inflammation/microperforation/intraabdominal collection Sigmoid diverticulitis with perforation and abscess -- continue Zosyn monitor wbc drainage rest as per the team
[2019-04-12] MEDS ORDERED: KETOROLAC TROMETHAMINE 30 MG/1 ML VIAL IVPUSH ONE (13:30)
--- NOTE | 2019-04-12 17:59 | PN ---
Progress Note, Physician History of Present Illness: Pt with sigmoid diverticulitis with small abscess, just done in IR with percutaneous aspiration of some purulent fluid, but no drain was left. Cultures pending. He was transferred from [facility] to [facility] for this today, and is now on the floor. He is seen sitting up on and examined lying in bed. He reports feeling better today. His pain is less, and he is able to move much better than yesterday. He did get some sleep last night with IV tylenol. He has ambulated, and had a good , soft BM earlier today. WBC is down today as well. Getting Zosyn per ID. - Current Medication List Current Medications: Active Medications Acetaminophen (Ofirmev Injection -) 1,000 mg IVPB Q6H PRN PRN Reason: PAIN LEVEL 1-5 Last Admin: 04/12/19 09:14 Dose: 1,000 mg Piperacillin Sod/Tazobactam (Sod 4.5 gm/ Dextrose) 100 mls @ 200 mls/hr IVPB Q6H-IV HERMAN; Protocol Last Admin: 04/12/19 17:38 Dose: 200 mls/hr Potassium Chloride/Dextrose/Sod Cl (D5-1/2ns+20 Meq Kcl -) 20 meq in 1,000 mls @ 125 mls/hr IV ASDIR [facility] Last Admin: 04/11/19 22:31 Dose: 125 mls/hr Insulin Aspart (Novolog Vial Sliding Scale -) 1 vial SQ TIDAC [facility]; Protocol Last Admin: 04/12/19 13:31 Dose: Not Given Ondansetron HCl (Zofran Injection) 4 mg IVPUSH Q6H PRN PRN Reason: NAUSEA Pantoprazole Sodium (Protonix Iv) 40 mg IVPUSH DAILY [facility] Last Admin: 04/12/19 09:02 Dose: 40 mg - Objective Vital Signs: Vital Signs Temperature 97.8 F 04/12/19 13:54 Pulse Rate 82 04/12/19 16:27 Respiratory Rate 21 H 04/12/19 16:27 Blood Pressure 125/62 04/12/19 16:27 O2 Sat by Pulse Oximetry (%) 100 04/12/19 16:27 Constitutional: Yes: No Distress, Calm, Obese Eyes: Yes: Conjunctiva Clear, EOM Intact HENT: Yes: Atraumatic, Normocephalic Gastrointestinal: Yes: Soft, Abdomen, Obese, Tenderness (minimal LLQ and suprapubic, no rebound or guarding) Extremities: No: Cool, Cyanosis Integumentary: No: Jaundice, Rash Wound/Incision: Yes: Dressing Dry and Intact (infraumbilical, from IR aspiration - with small bloodstain in middle of gauze under tegaderm). No: Dressing Removed Neurological: Yes: Alert, Oriented Labs: CBC, BMP 04/12/19 06:39 04/12/19 06:39 INR, PTT INR 1.43 (0.82-1.09) H 04/12/19 06:39 CMP Sodium 136 mmol/L (136-145) 04/12/19 06:39 Potassium 4.6 mmol/L (3.5-5.1) 04/12/19 06:39 Chloride 103 mmol/L (98-107) 04/12/19 06:39 Carbon Dioxide 26 mmol/L (21-32) 04/12/19 06:39 Anion Gap 7 MMOL/L (8-16) L 04/12/19 06:39 BUN 8.0 mg/dl (7-18) 04/12/19 06:39 Creatinine 0.7 mg/dl (0.55-1.3) 04/12/19 06:39 Est GFR (CKD-EPI)AfAm 145.74 04/12/19 06:39 Est GFR (CKD-EPI)NonAf 125.75 04/12/19 06:39 POC Glucometer 142 UNITS (80-120) 04/12/19 13:29 Random Glucose 156 mg/dl (74-106) H 04/12/19 06:39 Hemoglobin A1c % 7.1 % (4.2-6.3) H 04/12/19 06:39 Calcium 8.7 mg/dl (8.5-10) 04/12/19 06:39 Phosphorus 3.0 mg/dl (2.5-4.9) 04/12/19 06:39 Magnesium 2.1 mg/dL (1.8-2.4) 04/12/19 06:39 Total Bilirubin 0.5 mg/dl (0.2-1) 04/12/19 06:39 AST 10 U/L (15-37) L 04/12/19 06:39 ALT 16 U/L (13-61) 04/12/19 06:39 Alkaline Phosphatase 38 U/L (45-117) L D 04/12/19 06:39 Total Protein 6.4 g/dl (6.4-8.2) 04/12/19 06:39 Albumin 3.1 g/dl (3.4-5.0) L 04/12/19 06:39 A1C noted cultures from IR aspiration pending - ....Imaging Cat Scan: Image Reviewed (images from IR reviewed - area of abscess looks a little improved) Problem List - Problems (1) Diverticulitis of large intestine with abscess Assessment/Plan: to stay at [facility] on medicine s/p IR aspiration of purulent fluid, for culture, no drain left continue NPO/IVF for now, maintenance fluids IV antibiotics per ID - Zosyn pain meds prn, nonnarcotics first line GI/DVT prophylaxis encourage OOB/ambulation patient to let nurse/MD know if any acute change in his pain, abdominal distention, or symptoms if gross perforation or deterioration in clinical status requires emergent surgery, there is a good chance he would require colostomy he is aware and understands and agrees with plan will follow with you consider GI consultation will need GI followup for full colonoscopy 6-8 weeks after recovery from this episode also needs referral to, or to establish care with, a PMD after discharge - he knows this Code(s): K57.20 - DVTRCLI OF LG INT W PERFORATION AND ABSCESS W/O BLEEDING Qualifiers: Diverticulitis bleeding: without bleeding Qualified Code(s): K57.20 - Diverticulitis of large intestine with perforation and abscess without bleeding (2) Suprapubic pain Code(s): R10.2 - PELVIC AND PERINEAL PAIN (3) Left lower quadrant abdominal tenderness without rebound tenderness Code(s): R10.814 - LEFT LOWER QUADRANT ABDOMINAL TENDERNESS (4) Class 2 obesity due to excess calories without serious comorbidity with body mass index (BMI) of 35.0 to 35.9 in adult Code(s): E66.09 - OTHER OBESITY DUE TO EXCESS CALORIES; Z68.35 - BODY MASS INDEX (BMI) 35.0-35.9, ADULT
[2019-04-12] MEDS: D5-1/2NS+20 MEQ KCL - 20 MEQ/1,000 ML INFUS.BAG IV SCH (21:38)
[2019-04-13] MEDS ORDERED: DEXTROSE 5%-WATER 100 ML IVPB ONE ×3 (02:42→16:54)
[2019-04-13] MEDS ORDERED: PIPERACILLIN/TAZOBACTAM 4.5 GM VIAL IVPB ONE ×3 (02:42→16:54)
[2019-04-13] MEDS: PIPERACILLIN/TAZOB 4.5 GM 4.5 GM in DEXTROSE 5%-WATER 100 ML IVPB SCH ×3 (02:49→17:04)
[2019-04-13] MEDS: INSULIN SLIDING SCALE (NOVOLOG) 1 VIAL SQ SCH ×3 (06:20→17:24)
[2019-04-13] MEDS: PANTOPRAZOLE SODIUM 40 MG VIAL IVPUSH SCH (09:01)
--- NOTE | 2019-04-13 09:07 | CON.GI ---
Consult Consult Specialty:: GI Referred by:: Ruy/Qamar DEGROOT Reason for Consultation:: Abdominal pain , diverticulitis - History of Present Illness Chief Complaint: bdominal pain , History of Present Illness: 33 yrs old man H/O Diverticulitis present with Left LQ pain, poor PO intake for pat 1 wk as per patient symptoms started Friday night with left Lq pain that was intermittent, localized and associated with some nausea but no or chills, poor appetite and skip few work days, symptoms persisted more then usual and pain was very sever last night and today also c/o low grade fever , in the ED patient was afebrile with elevated TWBC , CT abd shows Acute Sigmoid Diverticulitis with perforation is being admitted for acute Diverticulitis with abscess at the time of examination comfortable, surgery is consulted recommended abx, no surgical nonintervention, S.P CT guided aspiration. - History Source History Provided By: Patient Limitations to Obtaining History: No Limitations - Past Medical History Gastrointestinal: Yes: Diverticulitis (was treated for in 2016, had sigmoidoscopy at the time; ?may have had in 2008 w/similar pain, but diagnosis then was epidydimitis), Diverticulosis, GERD, Other (obesity) - Past Surgical History Past Surgical History: Yes: None Additional Surgical History: flexible sigmoidoscopy 2016 - Alcohol/Substance Use Hx Alcohol Use: Yes (social/weekends, some binging (6-8 beers)) History of Substance Use: reports: Marijuana (occasionally (couple times a month )) - Smoking History Smoking history: Current some day smoker Have you smoked in the past 12 months: Yes Aproximately how many cigarettes per day: 1 (smokes on wkends/when he drinks) - Social History Usual Living Arrangement: With Significant Other (fiancee) ADL: Independent 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[employer], 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 History of Recent Travel: No <Jake Warren - Last Filed: 04/13/19 13:44> Home Medications <Jake Warren - Last Filed: 04/13/19 13:44> <eBthany Erickson - Last Filed: 04/13/19 20:48> - Allergies Allergies/Adverse Reactions: Allergies Allergy/AdvReac Type Severity Reaction Status Date / Time No Known Allergies Allergy Verified 04/11/19 11:27 - Home Medications Home Medications: Ambulatory Orders NK [No Known Home Medication] 04/12/19 Family Disease History - Family Disease History Family Disease History: Diabetes: Father, Other: Grandparent (diverticulitis) <Alberto Warreni - Last Filed: 04/13/19 13:44> Review of Systems - Review of Systems Constitutional: reports: Loss of Appetite. denies: Chills, Diaphoresis, Fever Eyes: denies: Double Vision HENT: denies: Difficult Swallowing Neck: denies: Decreased ROM Cardiovascular: denies: Chest Pain, Edema Respiratory: denies: Cough, Exercise Intolerance Gastrointestinal: reports: Abdominal Pain (lower bdominal pain), Constipation. denies: Dysphagia, Rectal Bleeding, Vomiting Blood Genitourinary: denies: Flank Pain Neurological: denies: Change in Speech, Confusion <Alberto Warreni - Last Filed: 04/13/19 13:44> Physical Exam-GI Vital Signs: Vital Signs Temperature 97.8 F 04/13/19 06:04 Pulse Rate 71 04/13/19 06:04 Respiratory Rate 18 04/13/19 06:04 Blood Pressure 123/79 04/13/19 06:04 O2 Sat by Pulse Oximetry (%) 100 04/12/19 21:00 Constitutional: Yes: Well Nourished, No Distress, Calm Eyes: Yes: Conjunctiva Clear, EOM Intact HENT: Yes: Atraumatic, Normocephalic Neck: Yes: Trachea Midline Cardiovascular: Yes: Regular Rate and Rhythm Respiratory: Yes: CTA Bilaterally Gastrointestinal Inspection: No: Ascites, Distention ...Auscultate: Yes: Normoactive Bowel Sounds ...Palpate: Yes: Soft, Tenderness (lower abdominal pain). No: Firm/Rigid, Guarding ...Percussion: Yes: Tympanitic ...Rectal Exam: Yes: Deferred Genitourinary: No: CVA Tenderness - Left Edema: No Peripheral Pulses WNL: Yes Neurological: Yes: Alert, Oriented Labs: CBC, BMP 04/12/19 06:39 04/12/19 06:39 INR, PTT INR 1.43 (0.82-1.09) H 04/12/19 06:39 <Alberto Warreni - Last Filed: 04/13/19 13:44> Vital Signs: Vital Signs Temperature 99.3 F 04/13/19 14:36 Pulse Rate 78 04/13/19 14:36 Respiratory Rate 18 04/13/19 14:36 Blood Pressure 127/63 04/13/19 14:36 O2 Sat by Pulse Oximetry (%) 100 04/13/19 09:00 Labs: CBC, BMP 04/13/19 10:00 04/13/19 08:15 INR, PTT INR 1.39 (0.83-1.09) H 04/13/19 10:00 <Bethany Erickson - Last Filed: 04/13/19 20:48> Imaging - Results Cat Scan: Report Reviewed <Jake Warren - Last Filed: 04/13/19 13:44> Problem List - Problems (1) Diverticulitis of large intestine with abscess Code(s): K57.20 - DVTRCLI OF LG INT W PERFORATION AND ABSCESS W/O BLEEDING Qualifiers: Diverticulitis bleeding: without bleeding Qualified Code(s): K57.20 - Diverticulitis of large intestine with perforation and abscess without bleeding (2) Obesity (BMI 30-39.9) Code(s): E66.9 - OBESITY, UNSPECIFIED <Jake Warren - Last Filed: 04/13/19 13:44> Assessment/Plan 33 year old male with h.o Diverticulitis present with one week history of abdominal pain , was found to have acute diverticulitis with an abscess. # Acute diverticulitis with an abscess (complicated Diverticulitis ) * S.P CT guided aspiration abscess * NPO * IV fluids * cont Abx Zosyn * pain control * colonoscopy 6-8 weeks after DC , can follow as out pt <Jake Warren - Last Filed: 04/13/19 13:44> Patient was seen and examined with Dr. Warren. Agree with above assessment and plan as outlined above. <Bethany Erickson - Last Filed: 04/13/19 20:48>
--- NOTE | 2019-04-13 10:25 | PN ---
Progress Note, Physician Chief Complaint: denies abdominal pain, denies any nausea. feels well today. patient verbalizes understanding of needing a new PCP, he is aware that his HmgA1c is 7.1 which makes him a pre diabetic. He is aware that he needs to modify his diet and weight and have his HmgA1c repeated in 2-3 months. Wants to see his fathers PCP, which is close to where he lives Wants to take better care of his health. History of Present Illness: Patient is a 33 year-old male with a PMHx significant for diverticultits. One previous hospitalization for diverticulitis in 2017. Patient presents to [facility] and transferred to [facility] after CT abdomen revealed sigmoid inflammation/microperforation/intraabdominal collection. On 04/12/19 patient underwent aspiration of diverticulus abscess where 25cc or malodorus fluid has been removed. wound cultures are pending. - Current Medication List Current Medications: Active Medications Acetaminophen (Ofirmev Injection -) 1,000 mg IVPB Q6H PRN PRN Reason: PAIN LEVEL 1-5 Last Admin: 04/12/19 09:14 Dose: 1,000 mg Potassium Chloride/Dextrose/Sod Cl (D5-1/2ns+20 Meq Kcl -) 20 meq in 1,000 mls @ 125 mls/hr IV ASDIR [facility] Last Admin: 04/12/19 21:38 Dose: 125 mls/hr Piperacillin Sod/Tazobactam (Sod 4.5 gm/ Dextrose) 100 mls @ 200 mls/hr IVPB Q8H-IV [facility]; Protocol Last Admin: 04/13/19 09:01 Dose: 200 mls/hr Insulin Aspart (Novolog Vial Sliding Scale -) 1 vial SQ TIDAC [facility]; Protocol Last Admin: 04/13/19 06:20 Dose: Not Given Ondansetron HCl (Zofran Injection) 4 mg IVPUSH Q6H PRN PRN Reason: NAUSEA Pantoprazole Sodium (Protonix Iv) 40 mg IVPUSH DAILY [facility] Last Admin: 04/13/19 09:01 Dose: 40 mg - Objective Vital Signs: Vital Signs Temperature 97.8 F 04/13/19 06:04 Pulse Rate 71 04/13/19 06:04 Respiratory Rate 18 04/13/19 06:04 Blood Pressure 123/79 04/13/19 06:04 O2 Sat by Pulse Oximetry (%) 100 04/12/19 21:00 Constitutional: Yes: Well Nourished, No Distress, Calm Eyes: Yes: WNL HENT: Yes: WNL Neck: Yes: WNL Cardiovascular: Yes: Regular Rate and Rhythm Respiratory: Yes: CTA Bilaterally Gastrointestinal: Yes: Normal Bowel Sounds, Soft, Abdomen, Obese ...Rectal Exam: Yes: Deferred Genitourinary: Yes: WNL Extremities: Yes: WNL Edema: No Wound/Incision: Yes: Clean/Dry Neurological: Yes: WNL, Alert ...Motor Strength: WNL Psychiatric: Yes: WNL Labs: CBC, BMP 04/12/19 06:39 04/12/19 06:39 INR, PTT INR 1.43 (0.82-1.09) H 04/12/19 06:39 Problem List - Problems (1) Diverticulitis of large intestine with abscess Assessment/Plan: CT Abd revealing sigmoid inflammation/microperforation/intraabdominal collection. Patient on Zosyn since admission. WBC trending down, remains afebrile s/p drainage of abscess on 04/12/19. Monitor WBC. Surgery following, ID following. Code(s): K57.20 - DVTRCLI OF LG INT W PERFORATION AND ABSCESS W/O BLEEDING Qualifiers: Diverticulitis bleeding: without bleeding Qualified Code(s): K57.20 - Diverticulitis of large intestine with perforation and abscess without bleeding (2) Class 2 obesity due to excess calories without serious comorbidity with body mass index (BMI) of 35.0 to 35.9 in adult Assessment/Plan: remi martinez. Will consult dietary. outpatient weight loss encouraged. Code(s): E66.09 - OTHER OBESITY DUE TO EXCESS CALORIES; Z68.35 - BODY MASS INDEX (BMI) 35.0-35.9, ADULT (3) Obesity (BMI 30-39.9) Assessment/Plan: BMI 35, excess caloric intake patient at high risk of diabetes with elevated BMI and HmgA1c of 7.1. Benefits of weight loss discussed: lower bp, decrease risk of heart disease will consult dietary. patient will benefit from outpatient follow up. he does not have a PCP, willing to see one that his family has. Code(s): E66.9 - OBESITY, UNSPECIFIED (4) Pre-diabetes Assessment/Plan: hmga1c 7.1. will need repeat A1c as an outpatient Code(s): R73.03 - PREDIABETES (5) Prophylactic measure Assessment/Plan: fen on clears per surgery, advance per surgery on ivf until fully tolerating meals monitor electrolytes full code nutritional consult for obesity and high risk for DM. lipid panel for a.m. Code(s): Z29.9 - ENCOUNTER FOR PROPHYLACTIC MEASURES, UNSPECIFIED Visit type - Emergency Visit Emergency Visit: Yes ED Registration Date: 04/11/19 Care time: The patient presented to the Emergency Department on the above date and was hospitalized for further evaluation of their emergent condition. - New Patient This patient is new to me today: Yes Date on this admission: 04/13/19 - Critical Care Critical Care patient: No - Discharge Referral Referred to [facility] Med P.C.: No
[2019-04-13 10:45] LABS: BASO % 0.8 % (0-2.0); EOS % 2.6 % (0-4.5); HEMATOCRIT 36.6 % (35.4-49); HEMOGLOBIN 12.3 GM/dL (11.7-16.9); LYMPH % 16.3 % (8-40); MCH 28.3 pg (25.7-33.7); MCHC 33.7 g/dl (32.0-35.9); MEAN PLT VOLUME 8.7 fl (7.5-11.1); MONO % 7.3 % (3.8-10.2); PLATELET COUNT 342 K/MM3 (134-434); RBC 4.36 M/mm3 (4.00-5.60); WHITE BLOOD COUNT 9.1 K/mm3 (4.0-10.0)
[2019-04-13 11:06] LABS: INR 1.39 (0.83-1.09); PROTHROMBIN TIME (PATIENT) 16.4 SEC (9.7-13.0)
[2019-04-13 11:19] LABS: ALBUMIN 3.1 g/dl (3.4-5.0); BILIRUBIN,TOTAL 0.4 mg/dL (0.2-1); BLOOD UREA NITROGEN 7.4 mg/dL (7-18); CALCIUM 8.8 mg/dL (8.5-10.1); CREATININE 0.8 mg/dL (0.55-1.3); MAGNESIUM 2.4 mg/dL (1.8-2.4); POTASSIUM 4.2 mmol/L (3.5-5.1); TOT PROT 6.9 g/dl (6.4-8.2)
--- NOTE | 2019-04-13 12:28 | PN ---
Progress Note, Physician History of Present Illness: stable - Current Medication List Current Medications: Active Medications Acetaminophen (Ofirmev Injection -) 1,000 mg IVPB Q6H PRN PRN Reason: PAIN LEVEL 1-5 Last Admin: 04/12/19 09:14 Dose: 1,000 mg Potassium Chloride/Dextrose/Sod Cl (D5-1/2ns+20 Meq Kcl -) 20 meq in 1,000 mls @ 125 mls/hr IV ASDIR [facility] Last Admin: 04/12/19 21:38 Dose: 125 mls/hr Piperacillin Sod/Tazobactam (Sod 4.5 gm/ Dextrose) 100 mls @ 200 mls/hr IVPB Q8H-IV [facility]; Protocol Last Admin: 04/13/19 09:01 Dose: 200 mls/hr Insulin Aspart (Novolog Vial Sliding Scale -) 1 vial SQ TIDAC [facility]; Protocol Last Admin: 04/13/19 11:09 Dose: Not Given Ondansetron HCl (Zofran Injection) 4 mg IVPUSH Q6H PRN PRN Reason: NAUSEA Pantoprazole Sodium (Protonix Iv) 40 mg IVPUSH DAILY [facility] Last Admin: 04/13/19 09:01 Dose: 40 mg - Objective Vital Signs: Vital Signs Temperature 97.8 F 04/13/19 06:04 Pulse Rate 71 04/13/19 06:04 Respiratory Rate 18 04/13/19 06:04 Blood Pressure 123/79 04/13/19 06:04 O2 Sat by Pulse Oximetry (%) 100 04/12/19 21:00 Constitutional: Yes: No Distress, Calm Cardiovascular: Yes: Regular Rate and Rhythm Respiratory: Yes: Regular, CTA Bilaterally Gastrointestinal: Yes: Soft, Hypoactive Bowel Sounds Musculoskeletal: Yes: WNL Extremities: Yes: WNL Neurological: Yes: Alert, Oriented Psychiatric: Yes: Alert, Oriented Labs: CBC, BMP 04/13/19 10:00 04/13/19 08:15 INR, PTT INR 1.39 (0.83-1.09) H 04/13/19 10:00 Assessment/Plan Problem List - Problems (1) Diverticulitis of large intestine with abscess Code(s): K57.20 - DVTRCLI OF LG INT W PERFORATION AND ABSCESS W/O BLEEDING (2) Hyperglycemia Code(s): R73.9 - HYPERGLYCEMIA, UNSPECIFIED (3) Obesity (BMI 30-39.9) Code(s): E66.9 - OBESITY, UNSPECIFIED Assessment/Plan 33 y.o. male with PMH of diverticulitis presenting with c/o severe LLQ abd pain x 1 wk, low grade fever/chills noted to have leukocytosis with CT Abd revealing sigmoid inflammation/microperforation/intraabdominal collection Sigmoid diverticulitis with perforation and abscess -- continue Zosyn monitor wbc surgery on case rest as per the team
[2019-04-13] MEDS: D5-1/2NS+20 MEQ KCL - 20 MEQ/1,000 ML INFUS.BAG IV SCH ×2 (14:03→22:24)
--- NOTE | 2019-04-13 15:15 | PN ---
Progress Note, Physician History of Present Illness: Pt with sigmoid diverticulitis with small abscess, had percutaneous aspiration of some purulent fluid in IR yesterday, but no drain was left. Cultures pending. He is seen and examined in bed. He reports feeling better. His pain is minimal, more soreness than the pain from before. He has not needed even IV tylenol yet today. He is ambulating, voiding well, no further BM yet. WBC is normal today; on Zosyn per ID. - Current Medication List Current Medications: Active Medications Acetaminophen (Ofirmev Injection -) 1,000 mg IVPB Q6H PRN PRN Reason: PAIN LEVEL 1-5 Last Admin: 04/12/19 09:14 Dose: 1,000 mg Potassium Chloride/Dextrose/Sod Cl (D5-1/2ns+20 Meq Kcl -) 20 meq in 1,000 mls @ 125 mls/hr IV ASDIR [facility] Last Admin: 04/13/19 14:03 Dose: 125 mls/hr Piperacillin Sod/Tazobactam (Sod 4.5 gm/ Dextrose) 100 mls @ 200 mls/hr IVPB Q8H-IV [facility]; Protocol Last Admin: 04/13/19 09:01 Dose: 200 mls/hr Insulin Aspart (Novolog Vial Sliding Scale -) 1 vial SQ TIDAC [facility]; Protocol Last Admin: 04/13/19 11:09 Dose: Not Given Ondansetron HCl (Zofran Injection) 4 mg IVPUSH Q6H PRN PRN Reason: NAUSEA Pantoprazole Sodium (Protonix Iv) 40 mg IVPUSH DAILY [facility] Last Admin: 04/13/19 09:01 Dose: 40 mg - Objective Vital Signs: Vital Signs Temperature 99.3 F 04/13/19 14:36 Pulse Rate 78 04/13/19 14:36 Respiratory Rate 18 04/13/19 14:36 Blood Pressure 127/63 04/13/19 14:36 O2 Sat by Pulse Oximetry (%) 100 04/13/19 09:00 Constitutional: Yes: No Distress, Calm, Obese Eyes: Yes: Conjunctiva Clear, EOM Intact HENT: Yes: Atraumatic, Normocephalic Gastrointestinal: Yes: Normal Bowel Sounds, Soft, Abdomen, Obese, Tenderness ( mild/minimal LLQ, referred from RLQ to left but mild; minimal tenderness at aspiration site infraumbilical). No: Tenderness, Rebound Extremities: No: Cool, Cyanosis Integumentary: Yes: Other (puncture site infraumbilical dressed). No: Jaundice , Rash Wound/Incision: Yes: Dressing Removed (from puncture site - serosang drainage on gauze, site not bleeding - re-covered with bandaid). No: Reddened, Bleeding Neurological: Yes: Alert, Oriented Labs: CBC, BMP 04/13/19 10:00 04/13/19 08:15 INR, PTT INR 1.39 (0.83-1.09) H 04/13/19 10:00 Microbiology 04/11/19 14:25 Blood Culture - Preliminary Blood - Peripheral Venous NO GROWTH OBTAINED AFTER 48 HOURS, INCUBATION TO CONTINUE FOR 3 DAYS. 04/11/19 14:20 Blood Culture - Preliminary Blood - Peripheral Venous NO GROWTH OBTAINED AFTER 48 HOURS, INCUBATION TO CONTINUE FOR 3 DAYS. 04/12/19 16:25 Gram Stain - Final Abscess 04/12/19 16:25 BROOKE Preparation - Preliminary Abscess Fungal Culture - Preliminary 04/12/19 16:25 AFB Smear Concentration - Preliminary Abscess Mycobacterial Culture - Preliminary Problem List - Problems (1) Diverticulitis of large intestine with abscess Assessment/Plan: s/p IR aspiration of purulent fluid, for culture, no drain left continue IV antibiotics per ID - Zosyn pain meds prn, nonnarcotics first line GI/DVT prophylaxis encourage OOB/ambulation will start clears for dinner and reassess tomorrow after breakfast decrease IV fluids if tolerates clear liquids at dinner but would not stop them yet patient to let nurse/MD know if any acute change in his pain, abdominal distention, or symptoms if gross perforation or deterioration in clinical status requires emergent surgery, there is a good chance he would require colostomy he is aware and understands and agrees with plan will follow with you GI consultation noted will need GI followup for full colonoscopy 6-8 weeks after recovery from this episode also needs referral to, or to establish care with, a PMD after discharge - he knows this discussed with Elis Foote NP Code(s): K57.20 - DVTRCLI OF LG INT W PERFORATION AND ABSCESS W/O BLEEDING Qualifiers: Diverticulitis bleeding: without bleeding Qualified Code(s): K57.20 - Diverticulitis of large intestine with perforation and abscess without bleeding (2) Suprapubic pain Code(s): R10.2 - PELVIC AND PERINEAL PAIN (3) Left lower quadrant abdominal tenderness without rebound tenderness Code(s): R10.814 - LEFT LOWER QUADRANT ABDOMINAL TENDERNESS (4) Class 2 obesity due to excess calories without serious comorbidity with body mass index (BMI) of 35.0 to 35.9 in adult Code(s): E66.09 - OTHER OBESITY DUE TO EXCESS CALORIES; Z68.35 - BODY MASS INDEX (BMI) 35.0-35.9, ADULT
[2019-04-14] MEDS ORDERED: PIPERACILLIN/TAZOBACTAM 4.5 GM VIAL IVPB ONE ×3 (01:38→17:10)
[2019-04-14] MEDS ORDERED: DEXTROSE 5%-WATER 100 ML IVPB ONE ×3 (01:38→17:10)
[2019-04-14] MEDS: PIPERACILLIN/TAZOB 4.5 GM 4.5 GM in DEXTROSE 5%-WATER 100 ML IVPB SCH ×3 (01:54→18:27)
[2019-04-14] MEDS: D5-1/2NS+20 MEQ KCL - 20 MEQ/1,000 ML INFUS.BAG IV SCH (06:12)
[2019-04-14] MEDS: INSULIN SLIDING SCALE (NOVOLOG) 1 VIAL SQ SCH ×3 (06:13→18:23)
--- NOTE | 2019-04-14 09:07 | PN.GI ---
GI Progress Note Subjective: No acute events over night Had one BM , normal formed , no bllod or mucus denies any fever , chills, N/V denies any abdominal pain - Objective Vital Signs: Vital Signs Temperature 98.4 F 04/14/19 06:11 Pulse Rate 74 04/14/19 06:11 Respiratory Rate 20 04/14/19 06:11 Blood Pressure 123/80 04/14/19 06:11 O2 Sat by Pulse Oximetry (%) 100 04/13/19 21:00 Constitutional: Well Nourished, No Distress Eyes: Yes: Conjunctiva Clear HENT: Yes: Atraumatic, Normocephalic Neck: Yes: Supple Cardiovascular: Yes: Regular Rate and Rhythm Respiratory: Yes: CTA Bilaterally Gastrointestinal Inspection: No: Distention ...Auscultate: Yes: Normoactive Bowel Sounds ...Palpate: Yes: Soft. No: Guarding, Tenderness, Epigastium, Tenderness, Rebound Edema: No Peripheral Pulses WNL: Yes Neurological: Yes: Alert, Oriented Labs: CBC, [facility] 04/13/19 10:00 04/13/19 08:15 INR, PTT INR 1.39 (0.83-1.09) H 04/13/19 10:00 <Jake Warren - Last Filed: 04/14/19 15:28> - Objective Vital Signs: Vital Signs Temperature 98.4 F 04/14/19 13:41 Pulse Rate 72 04/14/19 13:41 Respiratory Rate 20 04/14/19 06:11 Blood Pressure 129/79 04/14/19 13:41 O2 Sat by Pulse Oximetry (%) 100 04/13/19 21:00 Labs: CBC, [facility] 04/14/19 10:48 04/14/19 10:48 INR, PTT INR 1.39 (0.83-1.09) H 04/13/19 10:00 <Mary Lou Murry - Last Filed: 04/14/19 17:12> Assessment/Plan 33 year old male with h.o Diverticulitis present with one week history of abdominal pain , was found to have acute diverticulitis with an abscess. # Acute diverticulitis with an abscess (complicated Diverticulitis ) * S.P CT guided aspiration abscess * started clear liquids will advance to full liquid diet today * IV fluids * cont Abx Zosyn pending final cx and then we can switch to oral abx per ID * pain control * colonoscopy 6-8 weeks after DC , can follow as out pt <Jake Warren - Last Filed: 04/14/19 15:28> Pt seen/examined at bedside, agree with above assessment and plan per Dr. Warren. Pt feeling well, ambulating in hallways. Denies abdominal pain, n/v. Continue antibiotics per ID recommendations. Pt will require outpt GI follow up to discuss timing of colonoscopy. <Mary Lou Murry - Last Filed: 04/14/19 17:12> Problem List - Problems (1) Diverticulitis of large intestine with abscess Code(s): K57.20 - DVTRCLI OF LG INT W PERFORATION AND ABSCESS W/O BLEEDING Qualifiers: Diverticulitis bleeding: without bleeding Qualified Code(s): K57.20 - Diverticulitis of large intestine with perforation and abscess without bleeding (2) Obesity (BMI 30-39.9) Code(s): E66.9 - OBESITY, UNSPECIFIED <Jake Warren - Last Filed: 04/14/19 15:28>
--- NOTE | 2019-04-14 09:51 | PN ---
Progress Note, Physician History of Present Illness: stable no new issues - Current Medication List Current Medications: Active Medications Acetaminophen (Ofirmev Injection -) 1,000 mg IVPB Q6H PRN PRN Reason: PAIN LEVEL 1-5 Last Admin: 04/12/19 09:14 Dose: 1,000 mg Potassium Chloride/Dextrose/Sod Cl (D5-1/2ns+20 Meq Kcl -) 20 meq in 1,000 mls @ 125 mls/hr IV ASDIR [facility] Last Admin: 04/14/19 06:12 Dose: 125 mls/hr Piperacillin Sod/Tazobactam (Sod 4.5 gm/ Dextrose) 100 mls @ 200 mls/hr IVPB Q8H-IV [facility]; Protocol Last Admin: 04/14/19 01:54 Dose: 200 mls/hr Insulin Aspart (Novolog Vial Sliding Scale -) 1 vial SQ TIDAC [facility]; Protocol Last Admin: 04/14/19 06:13 Dose: Not Given Ondansetron HCl (Zofran Injection) 4 mg IVPUSH Q6H PRN PRN Reason: NAUSEA Pantoprazole Sodium (Protonix Iv) 40 mg IVPUSH DAILY [facility] Last Admin: 04/13/19 09:01 Dose: 40 mg - Objective Vital Signs: Vital Signs Temperature 98.4 F 04/14/19 06:11 Pulse Rate 74 04/14/19 06:11 Respiratory Rate 20 04/14/19 06:11 Blood Pressure 123/80 04/14/19 06:11 O2 Sat by Pulse Oximetry (%) 100 04/13/19 21:00 Constitutional: Yes: No Distress, Calm Cardiovascular: Yes: S1, S2 Respiratory: Yes: Regular, CTA Bilaterally Gastrointestinal: Yes: Normal Bowel Sounds, Soft Musculoskeletal: Yes: WNL Extremities: Yes: Other Neurological: Yes: Alert, Oriented Psychiatric: Yes: Alert, Oriented Labs: CBC, BMP 04/13/19 10:00 04/13/19 08:15 INR, PTT INR 1.39 (0.83-1.09) H 04/13/19 10:00 Assessment/Plan Problem List - Problems (1) Diverticulitis of large intestine with abscess Code(s): K57.20 - DVTRCLI OF LG INT W PERFORATION AND ABSCESS W/O BLEEDING (2) Hyperglycemia Code(s): R73.9 - HYPERGLYCEMIA, UNSPECIFIED (3) Obesity (BMI 30-39.9) Code(s): E66.9 - OBESITY, UNSPECIFIED Assessment/Plan 33 y.o. male with PMH of diverticulitis presenting with c/o severe LLQ abd pain x 1 wk, low grade fever/chills noted to have leukocytosis with CT Abd revealing sigmoid inflammation/microperforation/intraabdominal collection Sigmoid diverticulitis with perforation and abscess -- continue Zosyn monitor wbc surgery on case rest as per the team awaiting finalization of the bacteria then will be bale to switch to oral
[2019-04-14] MEDS ORDERED: ACETAMINOPHEN 325 MG TABLET (FP) PO PRN (10:23)
[2019-04-14] MEDS: PANTOPRAZOLE SODIUM 40 MG VIAL IVPUSH SCH (10:26)
--- NOTE | 2019-04-14 10:29 | PN ---
Progress Note, Physician History of Present Illness: Pt with sigmoid diverticulitis with small abscess, had percutaneous aspiration of some purulent fluid in IR. Cultures growing gram negatives, full ID and sensitivities pending. He is seen and examined sitting up in bed. He reports feeling well. No more pain , not using pain meds. He is ambulating, voiding well, had formed BM this morning. On Zosyn per ID. Tolerating clears since last night with no pain or nausea. - Current Medication List Current Medications: Active Medications Acetaminophen (Tylenol -) 650 mg PO Q6H PRN PRN Reason: PAIN LEVEL 6-10 Piperacillin Sod/Tazobactam (Sod 4.5 gm/ Dextrose) 100 mls @ 200 mls/hr IVPB Q8H-IV [facility]; Protocol Last Admin: 04/14/19 01:54 Dose: 200 mls/hr Insulin Aspart (Novolog Vial Sliding Scale -) 1 vial SQ TIDAC [facility]; Protocol Last Admin: 04/14/19 06:13 Dose: Not Given Ondansetron HCl (Zofran Injection) 4 mg IVPUSH Q6H PRN PRN Reason: NAUSEA Pantoprazole Sodium (Protonix Iv) 40 mg IVPUSH DAILY [facility] Last Admin: 04/13/19 09:01 Dose: 40 mg - Objective Vital Signs: Vital Signs Temperature 98.4 F 04/14/19 06:11 Pulse Rate 74 04/14/19 06:11 Respiratory Rate 20 04/14/19 06:11 Blood Pressure 123/80 04/14/19 06:11 O2 Sat by Pulse Oximetry (%) 100 04/13/19 21:00 Constitutional: Yes: No Distress, Calm, Obese Eyes: Yes: Conjunctiva Clear, EOM Intact HENT: Yes: Atraumatic, Normocephalic Gastrointestinal: Yes: Soft, Abdomen, Obese. No: Tenderness, Tenderness, Epigastrium Extremities: No: Cool, Cyanosis Integumentary: No: Jaundice, Rash Wound/Incision: Yes: Dressing Dry and Intact (bandaid on puncture site), Dressing Removed (left open to air). No: Draining, Reddened, Bleeding Neurological: Yes: Alert, Oriented Labs: CBC, BMP 04/13/19 10:00 04/13/19 08:15 Mag normal Microbiology 04/12/19 16:25 Gram Stain - Final Abscess Body Fluid Culture - Preliminary Lactose Fermenting Neg Bacilli Group D Strep Or Entero Coccus 04/12/19 16:25 AFB Smear Concentration - Preliminary Abscess Mycobacterial Culture - Preliminary 04/11/19 14:25 Blood Culture - Preliminary Blood - Peripheral Venous NO GROWTH OBTAINED AFTER 48 HOURS, INCUBATION TO CONTINUE FOR 3 DAYS. 04/11/19 14:20 Blood Culture - Preliminary Blood - Peripheral Venous NO GROWTH OBTAINED AFTER 48 HOURS, INCUBATION TO CONTINUE FOR 3 DAYS. 04/12/19 16:25 BROOKE Preparation - Preliminary Abscess Fungal Culture - Preliminary Problem List - Problems (1) Diverticulitis of large intestine with abscess Assessment/Plan: s/p IR aspiration of purulent fluid, cultures pending final ID/sens continue IV antibiotics per ID - Zosyn tylenol prn, not using GI/DVT prophylaxis OOB/ambulating frequently tolerating clears advance to full liquids, stop IV fluids if tolerating, may advance to diabetic diet for breakfast GI following will need GI followup for full colonoscopy 6-8 weeks after recovery from this episode also needs referral to, or to establish care with, a PMD after discharge - he knows this Code(s): K57.20 - DVTRCLI OF LG INT W PERFORATION AND ABSCESS W/O BLEEDING Qualifiers: Diverticulitis bleeding: without bleeding Qualified Code(s): K57.20 - Diverticulitis of large intestine with perforation and abscess without bleeding (2) Suprapubic pain Assessment/Plan: resolved Code(s): R10.2 - PELVIC AND PERINEAL PAIN (3) Left lower quadrant abdominal tenderness without rebound tenderness Assessment/Plan: resolved Code(s): R10.814 - LEFT LOWER QUADRANT ABDOMINAL TENDERNESS (4) Class 2 obesity due to excess calories without serious comorbidity with body mass index (BMI) of 35.0 to 35.9 in adult Code(s): E66.09 - OTHER OBESITY DUE TO EXCESS CALORIES; Z68.35 - BODY MASS INDEX (BMI) 35.0-35.9, ADULT
[2019-04-14 11:23] LABS: BASO % 0.5 % (0-2.0); EOS % 4.1 % (0-4.5); HEMATOCRIT 34.3 % (35.4-49); HEMOGLOBIN 11.8 GM/dL (11.7-16.9); LYMPH % 23.8 % (8-40); MCH 28.5 pg (25.7-33.7); MCHC 34.2 g/dl (32.0-35.9); MEAN CELL VOLUME 83.1 fl (80-96); MEAN PLT VOLUME 8.5 fl (7.5-11.1); NEUT % 63.6 % (42.8-82.8); PLATELET COUNT 364 K/MM3 (134-434); RBC 4.13 M/mm3 (4.00-5.60); RDW 12.8 % (11.9-15.9); WHITE BLOOD COUNT 6.6 K/mm3 (4.0-10.0)
[2019-04-14 11:54] LABS: ALBUMIN 3.1 g/dl (3.4-5.0); BILIRUBIN,TOTAL 0.6 mg/dL (0.2-1); BLOOD UREA NITROGEN 5.6 mg/dL (7-18); CREATININE 0.8 mg/dL (0.55-1.3); MAGNESIUM 2.3 mg/dL (1.8-2.4); POTASSIUM 4.2 mmol/L (3.5-5.1); TOT PROT 7.1 g/dl (6.4-8.2)
--- NOTE | 2019-04-14 13:42 | PN ---
Progress Note, Physician Chief Complaint: denies abdominal pain, denies any nausea. feels well today. tolerating diet History of Present Illness: Patient is a 33 year-old male with a PMHx significant for diverticultits. One previous hospitalization for diverticulitis in 2017. Patient presents to [facility] ED and transferred to [facility] after CT abdomen revealed sigmoid inflammation/microperforation/intraabdominal collection. On 04/12/19 patient underwent aspiration of diverticus abscess where 25cc or malodorus fluid has been removed. wound cultures are pending. - Current Medication List Current Medications: Active Medications Acetaminophen (Tylenol -) 650 mg PO Q6H PRN PRN Reason: PAIN LEVEL 6-10 Piperacillin Sod/Tazobactam (Sod 4.5 gm/ Dextrose) 100 mls @ 200 mls/hr IVPB Q8H-IV [facility]; Protocol Last Admin: 04/14/19 10:25 Dose: 200 mls/hr Insulin Aspart (Novolog Vial Sliding Scale -) 1 vial SQ TIDAC [facility]; Protocol Last Admin: 04/14/19 12:03 Dose: Not Given Ondansetron HCl (Zofran Injection) 4 mg IVPUSH Q6H PRN PRN Reason: NAUSEA Pantoprazole Sodium (Protonix Iv) 40 mg IVPUSH DAILY [facility] Last Admin: 04/14/19 10:26 Dose: 40 mg - Objective Vital Signs: Vital Signs Temperature 98.4 F 04/14/19 13:41 Pulse Rate 72 04/14/19 13:41 Respiratory Rate 20 04/14/19 06:11 Blood Pressure 129/79 04/14/19 13:41 O2 Sat by Pulse Oximetry (%) 100 04/13/19 21:00 Constitutional: Yes: Well Nourished, No Distress, Calm, Pallor HENT: Yes: WNL, Atraumatic Neck: Yes: WNL, Supple Cardiovascular: Yes: WNL, Regular Rate and Rhythm Respiratory: Yes: WNL, Regular, CTA Bilaterally Gastrointestinal: Yes: Normal Bowel Sounds ...Rectal Exam: Yes: Deferred Genitourinary: Yes: WNL Musculoskeletal: Yes: WNL Extremities: Yes: WNL Edema: No Peripheral Pulses WNL: Yes Integumentary: Yes: WNL Wound/Incision: Yes: Clean/Dry Neurological: Yes: WNL, Alert, Oriented ...Motor Strength: WNL Psychiatric: Yes: WNL Labs: CBC, BMP 04/14/19 10:48 04/14/19 10:48 INR, PTT INR 1.39 (0.83-1.09) H 04/13/19 10:00 Problem List - Problems (1) Diverticulitis of large intestine with abscess Assessment/Plan: CT Abd revealing sigmoid inflammation/microperforation/intraabdominal collection. Patient on Zosyn since admission. WBC trending down, remains afebrile s/p drainage of abscess on 04/12/19. Monitor WBC. Surgery following, ID following. Code(s): K57.20 - DVTRCLI OF LG INT W PERFORATION AND ABSCESS W/O BLEEDING Qualifiers: Diverticulitis bleeding: without bleeding Qualified Code(s): K57.20 - Diverticulitis of large intestine with perforation and abscess without bleeding (2) Class 2 obesity due to excess calories without serious comorbidity with body mass index (BMI) of 35.0 to 35.9 in adult Assessment/Plan: remi martinez. Will consult dietary. outpatient weight loss encouraged. Code(s): E66.09 - OTHER OBESITY DUE TO EXCESS CALORIES; Z68.35 - BODY MASS INDEX (BMI) 35.0-35.9, ADULT (3) Obesity (BMI 30-39.9) Assessment/Plan: BMI 35, excess caloric intake patient at high risk of diabetes with elevated BMI and HmgA1c of 7.1. Benefits of weight loss discussed: lower bp, decrease risk of heart disease dietary consulted. patient will benefit from outpatient follow up. he does not have a PCP, willing to see one that his family has. In the meantime, will make an appointment for follow up with a [facility] PCP. Code(s): E66.9 - OBESITY, UNSPECIFIED (4) Pre-diabetes Assessment/Plan: hmga1c 7.1. will need repeat A1c as an outpatient Code(s): R73.03 - PREDIABETES (5) Prophylactic measure Assessment/Plan: fen on clears per surgery, advance per surgery on ivf until fully tolerating meals monitor electrolytes full code nutritional consult for obesity and high risk for DM. Code(s): Z29.9 - ENCOUNTER FOR PROPHYLACTIC MEASURES, UNSPECIFIED Visit type - Emergency Visit Emergency Visit: Yes ED Registration Date: 04/11/19 Care time: The patient presented to the Emergency Department on the above date and was hospitalized for further evaluation of their emergent condition. - New Patient This patient is new to me today: No - Critical Care Critical Care patient: No - Discharge Referral Referred to [facility] Med P.C.: No
[2019-04-15] MEDS ORDERED: PIPERACILLIN/TAZOBACTAM 4.5 GM VIAL IVPB ONE ×3 (01:49→10:24)
[2019-04-15] MEDS ORDERED: DEXTROSE 5%-WATER 100 ML IVPB ONE ×3 (01:49→10:24)
[2019-04-15] MEDS: PIPERACILLIN/TAZOB 4.5 GM 4.5 GM in DEXTROSE 5%-WATER 100 ML IVPB SCH ×2 (01:54→10:31)
[2019-04-15 05:35] VITALS: BP 114/68; PULSE 87; TEMP 98.3
[2019-04-15] MEDS: INSULIN SLIDING SCALE (NOVOLOG) 1 VIAL SQ SCH ×2 (06:32→11:02)
--- NOTE | 2019-04-15 08:41 | PN ---
Progress Note, Physician History of Present Illness: stable no new issues - Current Medication List Current Medications: Active Medications Acetaminophen (Tylenol -) 650 mg PO Q6H PRN PRN Reason: PAIN LEVEL 6-10 Piperacillin Sod/Tazobactam (Sod 4.5 gm/ Dextrose) 100 mls @ 200 mls/hr IVPB Q8H-[facility]; Protocol Last Admin: 04/15/19 01:54 Dose: 200 mls/hr Insulin Aspart (Novolog Vial Sliding Scale -) 1 vial SQ TIDAC [facility]; Protocol Last Admin: 04/15/19 06:32 Dose: Not Given Ondansetron HCl (Zofran Injection) 4 mg IVPUSH Q6H PRN PRN Reason: NAUSEA Pantoprazole Sodium (Protonix Iv) 40 mg IVPUSH DAILY [facility] Last Admin: 04/14/19 10:26 Dose: 40 mg - Objective Vital Signs: Vital Signs Temperature 98.3 F 04/15/19 05:34 Pulse Rate 87 04/15/19 05:34 Respiratory Rate 19 04/15/19 05:34 Blood Pressure 114/68 04/15/19 05:34 O2 Sat by Pulse Oximetry (%) 100 04/14/19 21:00 Constitutional: Yes: No Distress, Calm Cardiovascular: Yes: S1, S2 Respiratory: Yes: Regular, CTA Bilaterally Gastrointestinal: Yes: Normal Bowel Sounds, Soft Musculoskeletal: Yes: WNL Extremities: Yes: WNL Neurological: Yes: Alert, Oriented Psychiatric: Yes: Alert, Oriented Labs: CBC, BMP 04/14/19 10:48 04/14/19 10:48 INR, PTT INR 1.39 (0.83-1.09) H 04/13/19 10:00 Assessment/Plan Problem List - Problems (1) Diverticulitis of large intestine with abscess Code(s): K57.20 - DVTRCLI OF LG INT W PERFORATION AND ABSCESS W/O BLEEDING (2) Hyperglycemia Code(s): R73.9 - HYPERGLYCEMIA, UNSPECIFIED (3) Obesity (BMI 30-39.9) Code(s): E66.9 - OBESITY, UNSPECIFIED Assessment/Plan 33 y.o. male with PMH of diverticulitis presenting with c/o severe LLQ abd pain x 1 wk, low grade fever/chills noted to have leukocytosis with CT Abd revealing sigmoid inflammation/microperforation/intraabdominal collection Sigmoid diverticulitis with perforation and abscess -- continue Zosyn monitor wbc surgery on case rest as per the team awaiting finalization of the bacteria then will be bale to switch to oral
--- NOTE | 2019-04-15 09:21 | PN ---
Progress Note, Physician History of Present Illness: Pt with sigmoid diverticulitis with small abscess, had percutaneous aspiration of some purulent fluid in IR. Cultures growing gram negatives, full ID and sensitivities pending. He is seen and examined in his room. He reports feeling well. No pain, not using pain meds. He is ambulating, voiding well, having BMs. On Zosyn per ID. Tolerated full liquids yesterday, started diet this morning. - Current Medication List Current Medications: Active Medications Acetaminophen (Tylenol -) 650 mg PO Q6H PRN PRN Reason: PAIN LEVEL 6-10 Piperacillin Sod/Tazobactam (Sod 4.5 gm/ Dextrose) 100 mls @ 200 mls/hr IVPB Q8H-[facility]; Protocol Last Admin: 04/15/19 01:54 Dose: 200 mls/hr Insulin Aspart (Novolog Vial Sliding Scale -) 1 vial SQ [facility]IDAC [facility]; Protocol Last Admin: 04/15/19 06:32 Dose: Not Given Ondansetron HCl (Zofran Injection) 4 mg IVPUSH Q6H PRN PRN Reason: NAUSEA Pantoprazole Sodium (Protonix Iv) 40 mg IVPUSH DAILY [facility] Last Admin: 04/14/19 10:26 Dose: 40 mg - Objective Vital Signs: Vital Signs Temperature 98.3 F 04/15/19 05:34 Pulse Rate 87 04/15/19 05:34 Respiratory Rate 19 04/15/19 05:34 Blood Pressure 114/68 04/15/19 05:34 O2 Sat by Pulse Oximetry (%) 100 04/14/19 21:00 Constitutional: Yes: No Distress, Calm, Obese Eyes: Yes: Conjunctiva Clear, EOM Intact HENT: Yes: Atraumatic, Normocephalic Gastrointestinal: Yes: Soft, Abdomen, Obese. No: Tenderness, Tenderness, Epigastrium Extremities: No: Cool, Cyanosis Integumentary: No: Jaundice, Rash Neurological: Yes: Alert, Oriented. No: Unsteady Gait Labs: CBC, BMP 04/14/19 10:48 04/14/19 10:48 Microbiology 04/11/19 14:25 Blood Culture - Preliminary Blood - Peripheral Venous NO GROWTH OBTAINED AFTER 72 HOURS, INCUBATION TO CONTINUE FOR 2 DAYS. 04/11/19 14:20 Blood Culture - Preliminary Blood - Peripheral Venous NO GROWTH OBTAINED AFTER 72 HOURS, INCUBATION TO CONTINUE FOR 2 DAYS. 04/12/19 16:25 AFB Smear Concentration - Final Abscess Mycobacterial Culture - Preliminary 04/12/19 16:25 Gram Stain - Final Abscess Body Fluid Culture - Preliminary Lactose Fermenting Neg Bacilli Group D Strep Or Entero Coccus Problem List - Problems (1) Diverticulitis of large intestine with abscess Assessment/Plan: s/p IR aspiration of purulent fluid, cultures pending final ID/sens continue IV antibiotics per ID - Zosyn need final cx to switch to oral for d/c - hopefully by tomorrow add bacid/probiotic tylenol prn, not using GI/DVT prophylaxis OOB/ambulating frequently tolerating diet GI following will need GI followup for full colonoscopy 6-8 weeks after recovery from this episode plans to see Dr. Eloy Sanchez/Rani Zamarripa for primary care after d/c (send d/c summary to) Code(s): K57.20 - DVTRCLI OF LG INT W PERFORATION AND ABSCESS W/O BLEEDING Qualifiers: Diverticulitis bleeding: without bleeding Qualified Code(s): K57.20 - Diverticulitis of large intestine with perforation and abscess without bleeding (2) Class 2 obesity due to excess calories without serious comorbidity with body mass index (BMI) of 35.0 to 35.9 in adult Code(s): E66.09 - OTHER OBESITY DUE TO EXCESS CALORIES; Z68.35 - BODY MASS INDEX (BMI) 35.0-35.9, ADULT
[2019-04-15] MEDS ORDERED: LACTOBACILLUS ACIDOPHILUS 1 TABLET PO SCH (10:00)
[2019-04-15] MEDS: PANTOPRAZOLE SODIUM 40 MG VIAL IVPUSH SCH (10:32)
[2019-04-15 11:22] LABS: BASO % 1.2 % (0-2.0); HEMATOCRIT 38.6 % (35.4-49); HEMOGLOBIN 13.4 GM/dL (11.7-16.9); LYMPH % 25.9 % (8-40); MCH 28.8 pg (25.7-33.7); MCHC 34.6 g/dl (32.0-35.9); MEAN CELL VOLUME 83.3 fl (80-96); MEAN PLT VOLUME 8.3 fl (7.5-11.1); MONO % 7.6 % (3.8-10.2); NEUT % 60.3 % (42.8-82.8); PLATELET COUNT 419 K/MM3 (134-434); RBC 4.64 M/mm3 (4.00-5.60); RDW 12.9 % (11.9-15.9); WHITE BLOOD COUNT 6.1 K/mm3 (4.0-10.0)
[2019-04-15 11:55] LABS: ALBUMIN 3.5 g/dl (3.4-5.0); BILIRUBIN,TOTAL 0.4 mg/dL (0.2-1); BLOOD UREA NITROGEN 7.5 mg/dL (7-18); CALCIUM 9.6 mg/dL (8.5-10.1); CREATININE 0.9 mg/dL (0.55-1.3); MAGNESIUM 2.5 mg/dL (1.8-2.4); POTASSIUM 4.2 mmol/L (3.5-5.1); TOT PROT 7.8 g/dl (6.4-8.2)
--- NOTE | 2019-04-15 12:52 | PN.GI ---
GI Progress Note - Objective Vital Signs: Vital Signs Temperature 98.3 F 04/15/19 05:34 Pulse Rate 87 04/15/19 05:34 Respiratory Rate 19 04/15/19 05:34 Blood Pressure 114/68 04/15/19 05:34 O2 Sat by Pulse Oximetry (%) 100 04/14/19 21:00 Labs: CBC, BMP 04/15/19 10:20 04/15/19 10:20 INR, PTT INR 1.39 (0.83-1.09) H 04/13/19 10:00 Problem List - Problems (1) Diverticulitis of large intestine with abscess Code(s): K57.20 - DVTRCLI OF LG INT W PERFORATION AND ABSCESS W/O BLEEDING Qualifiers: Diverticulitis bleeding: without bleeding Qualified Code(s): K57.20 - Diverticulitis of large intestine with perforation and abscess without bleeding (2) Obesity (BMI 30-39.9) Code(s): E66.9 - OBESITY, UNSPECIFIED
--- NOTE | 2019-04-15 14:32 | DS ---
Physical Exam: SUBJECTIVE: Patient seen and examined at the bedside. he is ambulating, eating well and denies any nausea/vomiting or diarrhea. patient will be discharged home today. he has been cleared by ID and surgery for discharge home. He states that he will follow up with Dr. Mildred Sanchez on May 04. Explained to patient that he would need to follow up on his elevated HmgA1c as he is a pre-diabetic. He is in agreement to follow up and his blood sugars here were stable. OBJECTIVE: discharge home, PCP appointment made Vital Signs Period Temp Pulse Resp BP Sys/Barlow Pulse Ox Last 24 Hr 98.3 F-98.4 F 87 19-20 114/68 100 PHYSICAL EXAM GENERAL: The patient is awake, alert, and fully oriented, in no acute distress. HEAD: Normal with no signs of trauma. EYES: PERRL, extraocular movements intact, sclera anicteric, conjunctiva clear. ENT: Ears normal, nares patent, oropharynx clear without exudates, moist mucous membranes. NECK: Trachea midline, full range of motion, supple. LUNGS: Breath sounds equal, clear to auscultation bilaterally, no wheezes, no crackles, no accessory muscle use. HEART: Regular rate and rhythm ABDOMEN: Soft, nontender, nondistended, normoactive bowel sounds, no guarding, no rebound, no hepatosplenomegaly, no masses. EXTREMITIES: 2+ pulses, warm, well-perfused, no edema. NEUROLOGICAL: Normal speech, seady gait . PSYCH: Normal mood, normal affect. SKIN: Warm, dry, normal turgor, no rashes or lesions noted. LABS Laboratory Results - last 24 hr 04/15/19 04/15/19 04/15/19 06:29 10:20 10:20 WBC 6.1 RBC 4.64 Hgb 13.4 Hct 38.6 MCV 83.3 MCH 28.8 MCHC 34.6 RDW 12.9 Plt Count 419 MPV 8.3 Absolute Neuts (auto) 3.7 Neutrophils % 60.3 Lymphocytes % 25.9 Monocytes % 7.6 Eosinophils % 5.0 H Basophils % 1.2 Nucleated RBC % 0 Sodium 137 Potassium 4.2 Chloride 104 Carbon Dioxide 29 Anion Gap 5 L BUN 7.5 Creatinine 0.9 Est GFR (CKD-EPI)AfAm 131.44 Est GFR (CKD-EPI)NonAf 113.41 POC Glucometer 92 Random Glucose 101 Calcium 9.6 Magnesium 2.5 H Total Bilirubin 0.4 AST 25 ALT 53 Alkaline Phosphatase 57 Total Protein 7.8 Albumin 3.5 04/15/19 11:00 WBC RBC Hgb Hct MCV MCH MCHC RDW Plt Count MPV Absolute Neuts (auto) Neutrophils % Lymphocytes % Monocytes % Eosinophils % Basophils % Nucleated RBC % Sodium Potassium Chloride Carbon Dioxide Anion Gap BUN Creatinine Est GFR (CKD-EPI)AfAm Est GFR (CKD-EPI)NonAf POC Glucometer 119 Random Glucose Calcium Magnesium Total Bilirubin AST ALT Alkaline Phosphatase Total Protein Albumin HOSPITAL COURSE: Date of Admission:04/11/19 Date of Discharge: 04/15/19 Patient is a 33 year-old male with a PMHx significant for diverticultits. One previous hospitalization for diverticulitis in 2017. Patient presents to [facility] ED and transferred to [facility] after CT abdomen revealed sigmoid inflammation/microperforation/intraabdominal collection. On 04/12/19 patient underwent aspiration of diverticulus abscess where 25cc or malodorus fluid has been removed. He was treated with Zosyn during his hospital stay and based on wound cultures, he will be transitioned to Levaquin 750mg daily for 7 days and Flagyl 500mg TID for 7 days. Wound cultures grew Escherichia Coli and Enterococcus Avium. HOSPITAL COURSE BY PROBLEM LIST: Minutes to complete discharge: 60 Discharge Summary Reason For Visit: abd pain Current Active Problems Class 2 obesity due to excess calories without serious comorbidity with body mass index (BMI) of 35.0 to 35.9 in adult (Acute) Diverticulitis of large intestine with abscess (Acute) Hyperglycemia (Acute) Left lower quadrant abdominal tenderness without rebound tenderness (Acute) Obesity (BMI 30-39.9) (Acute) Pre-diabetes (Acute) Prophylactic measure (Acute) Suprapubic pain (Acute) Condition: Stable - Instructions Diet, Activity, Other Instructions: Mr. Kang: You were admitted to [facility] on 04/11/19 and you were found to have sigmoid diverticulitis with small abscess. You had a percutaneous aspiration of some purulent fluid in IR and the cultures grew a bacteria that we treated you with IV antibiotics. We will be sending you home with oral antibiotics of Levaquin and Flagyl as directed below. Here are our recommendations: Sigmoid diverticulitis with small abscess is your admitting diagnosis. What is sigmoid diverticulitis with small abscess? It is a perforation of the inflamed diverticula and it is a complication of diverticulitis. An abscess is a collection of fluid. We collected fluid in our lab from your abdomen and we have transitioned you to oral antibiotics as follows: 1. Levaquin 750mg take ONCE per day for 7 days. Start on 04/16/2019 through April 22. 2. Flagyl 500mg take THREE times per day at 6am, 2pm and 6pm. Start on 2018 through April 22. 3. Bacid - 1 tablet. this will protect your stomach and help you tolerate the antibiotics. start this on 04/16/19 also Next steps: Please note that we have made an appointment for you to see Dr. Mildred Sanchez on May 04 (Friday) at 11:30 a.m. Please note that the cost for this visit is approximately $125 for your initial visit if your insurance does not cover it. [phone] is phone number for doctors office. please bring your discharge paperwork with you. Diet: Please continue a low salt, low fat diet. Follow ups: You will need GI followup for full colonoscopy 6-8 weeks after recovery from this episode. this can be arranged with your primary care doctor. We also noted that your Hmga1c was 7.1. What is a Hmga1c? For people without diabetes, the normal range of the hemoglobin A1c level is between 4-5.6%. Hemoglobin A1c levels between 5.7 and 7.1 means that you have a higher chance of getting diabetes. You will need to have your level repeated with your primary care doctor. Please consider weight loss. Your BMI is 35 which puts you at high risk of tomasz diabetes. Please consider lowering your BMI with diet and excercise. Thank you for allowing us to care for you Your medications will cost you about $50.00 without insurance at [facility] (S1 level at [facility]). [employer] [employer] [phone] [facility] Medical @ [facility] Referrals: Mary Lou Murry MD [Staff Physician] - (plse call for an appointment) Mildred Sanchez MD [Staff Physician] - ($125 for your initial visit. May 04Friday at 11:30 a.m. [phone] is phone number for doctors office. please bring your discharge paperwork with you. ) Disposition: HOME - Home Medications Comprehensive Discharge Medication List: Ambulatory Orders Lactobacillus Acidophilus [Bacid -] 1 tab PO DAILY #30 tab 04/15/19 levoFLOXacin [Levaquin] 750 mg PO DAILY #7 tab 04/15/19 metroNIDAZOLE [Flagyl -] 500 mg PO TID #21 tablet 04/15/19 Problem List - Problems (1) Diverticulitis of large intestine with abscess Assessment/Plan: CT Abd revealing sigmoid inflammation/microperforation/intraabdominal collection. Patient on Zosyn since admission. WBC trending down, remains afebrile s/p drainage of abscess on 04/12/19. Labs stable, leukocytosis resolved. Cleared by ID and surgery for discharge. Wound cultures show Ecoli and Enterococcus Avium. Patient to be discharged on Levaquin and Flagyl. Tolerating advanced diet, no nausea/vomiting/diarrhea. Patient to follow up with GI on discharge for possible colonoscopy. Code(s): K57.20 - DVTRCLI OF LG INT W PERFORATION AND ABSCESS W/O BLEEDING Qualifiers: Diverticulitis bleeding: without bleeding Qualified Code(s): K57.20 - Diverticulitis of large intestine with perforation and abscess without bleeding (2) Class 2 obesity due to excess calories without serious comorbidity with body mass index (BMI) of 35.0 to 35.9 in adult Assessment/Plan: mobid obestity. outpatient weight loss encouraged. Code(s): E66.09 - OTHER OBESITY DUE TO EXCESS CALORIES; Z68.35 - BODY MASS INDEX (BMI) 35.0-35.9, ADULT (3) Obesity (BMI 30-39.9) Assessment/Plan: BMI 35, excess caloric intake patient at high risk of diabetes with elevated BMI and HmgA1c of 7.1. Benefits of weight loss discussed: lower bp, decrease risk of heart disease dietary consulted. patient will benefit from outpatient follow up. he does not have a PCP, but has seen Dr. Mildred Sanchez a few years ago. Appointment made for follow up Code(s): E66.9 - OBESITY, UNSPECIFIED (4) Pre-diabetes Assessment/Plan: hmga1c 7.1. will need repeat A1c as an outpatient Code(s): R73.03 - PREDIABETES (5) Prophylactic measure Code(s): Z29.9 - ENCOUNTER FOR PROPHYLACTIC MEASURES, UNSPECIFIED This patient is new to me today: No Emergency Visit: Yes ED Registration Date: 04/11/19 Care time: The patient presented to the Emergency Department on the above date and was hospitalized for further evaluation of their emergent condition. Critical Care patient: No - Discharge Referral Referred to [facility] Med P.C.: No
== END 2019-04-15 15:52 | disposition home or self-care (01) | DRG 229 ==
LOC: FER 11:26 → FM/S 14:33 → J6S 04-12 17:37
PROVIDERS: ADMIT Internal Medicine; ATTEND Nurse Practitioner Family
PROC: 0W9G3ZX Drainage of Peritoneal Cavity, Percutaneous Approach, Diagnostic (ICD-10-PCS; principal; 2019-04-12)
DX: K57.20 Diverticulitis of large intestine with perforation and abscess without bleeding (principal); E66.9 Obesity, unspecified; Z68.35 Body mass index [BMI] 35.0-35.9, adult; R73.03 Prediabetes; F17.210 Nicotine dependence, cigarettes, uncomplicated; F12.10 Cannabis abuse, uncomplicated
CPT/HCPCS: 36415; 49406; 74177-TC; 80053; 80061; 81003; 82962; 83036; 83605; 83721; 83735; 84100; 85025; 85610; 85730; 86850; 86900; 86901; 87040; 87070; 87075; 87076; 87102; 87116; 87186; 87205; 87206; 87210; 87899; 99283-25; J0131; J7030

== ENCOUNTER 2021-05-20 11:10 | Emergency (ER) | payer OTHER ==
[2021-05-20 11:17] VITALS: BP 147/95; PULSE 93; TEMP 97.9; BMI 35.2
[2021-05-20] MEDS ORDERED: SODIUM CHLORIDE 1,000 ML IV STA (12:18)
[2021-05-20] MEDS ORDERED: ONDANSETRON 4 MG/2 ML VIAL IVPUSH ONE (12:18)
[2021-05-20] MEDS ORDERED: morphine CARPU-JECT 4 MG/1 ML DISP.SYRIN IVPUSH ONE (12:18)
[2021-05-20] MEDS ORDERED: ONDANSETRON 4 MG/2 ML VIAL ONE (12:30)
[2021-05-20] MEDS ORDERED: morphine SULFATE 4 MG/ML VIAL ONE (12:35)
[2021-05-20 12:44] LABS: BASO % 1.3 % (0-2.0); EOS % 1.3 % (0-4.5); HEMATOCRIT 41.2 % (35.4-49); HEMOGLOBIN 14.3 GM/dL (11.7-16.9); MCHC 34.8 g/dl (32.0-35.9); MEAN CELL VOLUME 86.3 fl (80-96); MEAN PLT VOLUME 9.3 fl (7.5-11.1); NEUT % 77.4 % (42.8-82.8); PLATELET COUNT 272 10^3/uL (134-434); RBC 4.78 M/mm3 (4.00-5.60); RDW 12.5 % (11.9-15.9); URINE APPEARANCE CLEAR; URINE BILIRUBIN NEGATIVE (NEGATIVE); URINE COLOR DK YELLOW; URINE GLUCOSE (UA) 3+ (NEGATIVE); URINE KETONE TRACE (NEGATIVE); URINE LEUK ESTERASE NEGATIVE (NEGATIVE); URINE NITRITE NEGATIVE (NEGATIVE); URINE PROTEIN TRACE (NEGATIVE); WHITE BLOOD COUNT 13.9 K/mm3 (4.0-10.0)
[2021-05-20 13:06] LABS: ALBUMIN 3.7 g/dl (3.4-5.0); CALCIUM 9.3 mg/dL (8.5-10.1); MAGNESIUM 2.4 mg/dL (1.8-2.4)
[2021-05-20 13:09] LABS: CREATININE 0.7 mg/dL (0.55-1.3)
[2021-05-20 13:12] LABS: BILIRUBIN,TOTAL 0.4 mg/dL (0.2-1); TOT PROT 7.6 g/dl (6.4-8.2)
== END 2021-05-20 15:13 | disposition home or self-care (01) ==
LOC: JER 11:10 → JERFT 11:10
PROC: 3E033GC Introduction of Other Therapeutic Substance into Peripheral Vein, Percutaneous Approach (ICD-10-PCS; principal; 2021-05-20)
DX: K57.92 Diverticulitis of intestine, part unspecified, without perforation or abscess without bleeding (principal)
CPT/HCPCS: 36415; 74177-TC; 80053; 81003; 83690; 83735; 85025; 87086; 99285-25; C9803; Q9967; U0003; U0005

== ENCOUNTER 2024-05-10 07:51 | Emergency (ER) | payer OTHER ==
[2024-05-10 08:06] VITALS: BP 116/73; PULSE 69; RESP 17; TEMP 98.6; BMI 29.8
[2024-05-10] MEDS ORDERED: DIPHTH,PERTUSS(ACELL),TET 0.5 ML DISP.SYRIN IM ONE (09:00)
[2024-05-10] MEDS: DIPHTH,PERTUSS(ACELL),TET 0.5 ML DISP.SYRIN IM ONE (09:19)
== END 2024-05-10 09:43 | disposition home or self-care (01) ==
LOC: JERFT 07:51 → JER 07:51 → JERFT 09:43
PROC: 3E0234Z Introduction of Serum, Toxoid and Vaccine into Muscle, Percutaneous Approach (ICD-10-PCS; principal; 2024-05-10)
DX: S60.454A Superficial foreign body of right ring finger, initial encounter (principal); W45.8XXA Other foreign body or object entering through skin, initial encounter; Z23 Encounter for immunization
CPT/HCPCS: 73130-TC-RT-FY; 90715; 99283-25